=== PATIENT | male | born 1965 | race Caucasian/White ===

== ENCOUNTER 2017-10-20 16:30 | Emergency (ER) | payer BC ==
--- NOTE | 2017-10-20 18:06 | ER Document Report ---
ED Medical Screen (RME) - General Chief Complaint: Pain All Over Stated Complaint: ANXIETY Time Seen by Provider: 10/20/17 17:49 TRAVEL OUTSIDE OF THE [place] IN LAST 30 DAYS: No - HPI Notes: 10/20/17 18:05 Patient apparently drove himself to the hospital there was found floor at the refill complaining of shoulder pain. Patient upon my evaluation triage has rambling speech stating that he is very anxious. Patient cannot concentrate on one area however he states that he is on chronic pain medication methadone used to be on Valium however has been out currently has pain in the rectum denies any nausea vomiting. Patient also with multiple other complaints however when asked the patient to limit his complaint list to one or 2 objects or the most important objects patient has become very belligerent - Related Data Allergies/Adverse Reactions: Penicillins Allergy (Verified 10/20/17 17:50) Past Medical History - Social History Chew tobacco use (# tins/day): No Frequency of alcohol use: None Drug Abuse: Marijuana Renal/ Medical History: Denies: Hx Peritoneal Dialysis Review of Systems - Review of Systems Constitutional: Other - pain Physical Exam - Vital signs Vitals: Temp Pulse Resp BP Pulse Ox 97.9 F 75 22 H 148/85 H 98 10/20/17 16:35 10/20/17 16:35 10/20/17 16:35 10/20/17 16:35 10/20/17 16:35 - Respiratory Respiratory status: No respiratory distress Chest status: Nontender Breath sounds: Normal Chest palpation: Normal - Cardiovascular Rhythm: Regular Heart sounds: Normal auscultation - Extremities General lower extremity: Normal weight bearing Course - Vital Signs Vital signs: Temp Pulse Resp BP Pulse Ox 97.9 F 75 22 H 148/85 H 98 10/20/17 16:35 10/20/17 16:35 10/20/17 16:35 10/20/17 16:35 10/20/17 16:35
--- NOTE | 2017-10-20 19:08 | RADIOLOGY REPORT (SQ) ---
EXAM DESCRIPTION: SHOULDER BILAT 2 OR MORE VIEWS COMPLETED DATE/TIME: 10/20/2017 6:51 pm REASON FOR STUDY: chronic pain right shoulder COMPARISON: None. FINDINGS: Three views right shoulder: Presumed postoperative changes related to the AC joint, which looks minimally irregular. There is scattered regional surgical sutures. No fracture or bone lesio n. Right lung clear as assessed. Three views left shoulder. Superior migration humeral head, worrisome for cuff tear. AC joint intac t. Lungs as assessed are clear. TECHNICAL DOCUMENTATION: JOB ID: [id number] Reading location - IP/workstation name: [email or web address]
[2017-10-20 19:18] LABS: ABSOLUTE EOSINOPHILS # (AUTO) 0.1 10^3/uL (0.0-0.6); ABSOLUTE LYMPHOCYTES (AUTO) 0.9 10^3/uL (0.5-4.7); ABSOLUTE MONOCYTES (AUTO) 0.6 10^3/uL (0.1-1.4); ABSOLUTE NEUT (AUTO) 4.4 10^3/uL (1.7-8.2); BASOPHILS % (AUTO) 0.4 % (0-2); EOSINOPHILS % (AUTO) 1.6 % (0-6); HEMATOCRIT 39.6 % (37.9-51.0); HEMOGLOBIN 13.7 g/dL (13.5-17.0); LYMPHOCYTES % (AUTO) 14.4 % (13-45); MEAN CORPUSCULAR HEMOGLOBIN 33.5 pg (27.0-33.4); MEAN CORPUSCULAR HGB CONC 34.7 g/dL (32.0-36.0); MEAN CORPUSCULAR VOLUME 97 fl (80-97); MONOCYTES % (AUTO) 10.3 % (3-13); PLATELET COUNT 235 10^3/uL (150-450); RED CELL DISTRIBUTION WIDTH 13.2 % (11.5-14.0); SEGMENTED NEUTROPHILS % (AUTO) 73.3 % (42-78); TOTAL CELLS COUNTED % (AUTO) 100 %
[2017-10-20 19:21] LABS: AMORPHOUS SEDIMENT,URINE TRACE /HPF; APPEARANCE,URINE SLIGHTLY-CLOUDY; BILIRUBIN,URINE NEGATIVE (NEGATIVE); COLOR,URINE YELLOW; GLUCOSE, URINE NEGATIVE (NEGATIVE); KETONES,URINE TRACE mg/dL (NEGATIVE); LEUKOCYTE ESTERASE,URINE NEGATIVE (NEGATIVE); NITRITE,URINE NEGATIVE (NEGATIVE); PROTEIN,URINE NEGATIVE (NEGATIVE); URINE SPECIFIC GRAVITY 1.024
[2017-10-20 19:41] LABS: ALANINE AMINOTRANSFERASE 31 U/L (21-72); ALBUMIN 4.5 g/dL (3.5-5.0); ALKALINE PHOSPHATASE 57 U/L (38-126); ANION GAP 15 (5-19); ASPARTATE AMINO TRANSFERASE 27 U/L (17-59); BILIRUBIN,DIRECT 0.4 mg/dL (0.0-0.4); BILIRUBIN,TOTAL 0.5 mg/dL (0.2-1.3); BLOOD UREA NITROGEN 11 mg/dL (7-20); CALCIUM 9.7 mg/dL (8.4-10.2); CARBON DIOXIDE 30 mmol/L (22-30); CHLORIDE 103 mmol/L (98-107); GLUCOSE 119 mg/dL (75-110); POTASSIUM 3.3 mmol/L (3.6-5.0); SODIUM 147.5 mmol/L (137-145); TOTAL PROTEIN 8.1 g/dL (6.3-8.2)
[2017-10-20 19:51] LABS: URINE AMPHETAMINES SCREEN NEGATIVE; URINE BARBITURATES SCREEN NEGATIVE; URINE BENZODIAZEPINES SCREEN UNCONFIRMED POSITIVE; URINE MARIJUANA (THC) SCREEN UNCONFIRMED POSITIVE; URINE PHENCYCLIDINE SCREEN NEGATIVE
[2017-10-20 19:53] LABS: URINE COCAINE SCREEN NEGATIVE; URINE METHADONE SCREEN NEGATIVE
[2017-10-20] MEDS ORDERED: POTASSIUM CHLORIDE 10 MEQ CAPSULE.ER PO ONE (22:20)
--- NOTE | 2017-10-20 22:23 | ER Document Report ---
ED General - General Chief Complaint: Pain All Over Stated Complaint: ANXIETY Time Seen by Provider: 10/20/17 17:49 Notes: Patient is 52-year-old male who presents with saying that his body hurts all over and that he is very anxious. He says he has been out of his Valium now for a few days. He takes it routinely. He also has mentions a history of rectal cancer. He has colostomy. He says he will sometimes see blood coming from his rectum but has not yet followed up with his oncologist or physician regards to this. No fevers. No recent infections. No other complaints at this time. Workup was performed after triage evaluation by the physician triage. TRAVEL OUTSIDE OF THE [place] IN LAST 30 DAYS: No - Related Data Allergies/Adverse Reactions: Penicillins Allergy (Verified 10/20/17 17:50) Past Medical History - Social History Smoking Status: Former Smoker Chew tobacco use (# tins/day): No Frequency of alcohol use: None Drug Abuse: Marijuana Family History: Reviewed & Not Pertinent Patient has suicidal ideation: No Patient has homicidal ideation: No Renal/ Medical History: Denies: Hx Peritoneal Dialysis Review of Systems - Review of Systems Notes: My Normal Review Basic REVIEW OF SYSTEMS: CONSTITUTIONAL : Denies fever, chills, or sweats. Denies recent illness. EENT: Denies eye, ear, throat, or mouth pain or symptoms. Denies nasal or sinus congestion. CARDIOVASCULAR: Denies chest pain. RESPIRATORY: Denies cough, cold, or chest congestion. Denies shortness of breath, difficulty breathing, or wheezing. GASTROINTESTINAL: Denies abdominal pain. Some intermittent rectal bleeding. GENITOURINARY: Denies difficulty urinating, painful urination, burning, frequency, or blood in urine. FEMALE GENITOURINARY: Denies vaginal bleeding, abnormal or irregular periods. LMP: MUSCULOSKELETAL: Fuhs body aches. SKIN: Denies rash or skin lesions. NEUROLOGICAL: Denies altered mental status or loss of consciousness. Denies headache. Denies weakness or paralysis or loss of use of either side. Denies problems with gait or speech. Denies sensory or motor loss. PSYCHIATRIC: anxiety ALL OTHER SYSTEMS REVIEWED AND NEGATIVE. Physical Exam - Vital signs Vitals: Temp Pulse Resp BP Pulse Ox 97.9 F 75 22 H 148/85 H 98 10/20/17 16:35 10/20/17 16:35 10/20/17 16:35 10/20/17 16:35 10/20/17 16:35 - Notes Notes: General Appearance: Well nourished, exam patient is very hyper and anxious. He does not appear to be in significant pain. He is not septic or toxic appearing. Vitals: reviewed, See vital signs table. Head: no swelling or tenderness to the head Eyes: PERRL, EOMI, Conjuctiva clear Mouth: No decreasd moisture Throat: No tonsillar inflammation, No airway obstruction, No lymphadenopathy Neck: Supple, no neck tenderness, No thyromegaly Lungs: No wheezing, No rales, No rhonci, No accessory muscle use, good air exchange bilaterally. Heart: Normal rate, Regular rythm, No murmur, no rub Abdomen: Normal BS, soft, No rigidity, No abdominal tenderness, No guarding, no rebound, no abdominal masses, no organomegaly Exam: No blood on external rectal exam.. No external rectal masses. Extremities: strength 5/5 in all extremities, good pulses in all extremities, no swelling or tenderness in the extremities, no edema. Skin: warm, dry, appropriate color, no rash Neuro: speech clear, oriented x 3, Hyper affect, responds appropriately to questions. Course - Re-evaluation Re-evalutation: 10/21/17 05:23 I suspect most patient's symptoms are related to the fact that is now been several days without his Valium and he typically takes Valium 4 times a day. I have given a dose of Valium and I will write a short prescription for next few days until he can get into see his doctor. I did look him up on the prescription database and his last prescription was September 17 so it does coincide with the fact that he has been out for approximately 2 days. I think this will most likely relieve most patient's symptoms. In regards to his rectal bleeding has had intermittently, I informed him that he needs to follow-up closely with his oncologist for reevaluation. I informed him to return to ER if he has consistent rectal bleeding, any pain in his rectal area, any seizures, he feels like his heart is racing, or she feels unwell. Patient agrees with plan will be discharged home. Dictation of this chart was performed using voice recognition software; therefore, there may be some unintended grammatical errors. - Vital Signs Vital signs: Temp Pulse Resp BP Pulse Ox 97.5 F 72 15 132/54 H 100 10/20/17 22:30 10/20/17 22:30 10/20/17 22:30 10/20/17 22:30 10/20/17 22:30 - Laboratory Result Diagrams: 10/20/17 18:53 10/20/17 18:53 Laboratory results interpreted by me: 10/20/17 10/20/17 10/20/17 18:53 18:53 19:07 RBC 4.10 L MCH 33.5 H Sodium 147.5 H Potassium 3.3 L Glucose 119 H Urine Ketones TRACE H Urine Urobilinogen 4.0 H Discharge - Discharge Clinical Impression: Anxiety, Rectal bleeding, Benzodiazepine dependence Chronic shoulder pain Qualifiers: Laterality: left Qualified Code(s): M25.512 - Pain in left shoulder Condition: Good Disposition: HOME, SELF-CARE Additional Instructions: PLease take the Valium as prescribed and follow up with your doctor for refill of your medications. please follow up with your oncologist (cancer doctor) and inform him/her of your rectal bleeding. Return to the ER if you have worsening bleeding. fevers. or feel unwell. Prescriptions: Diazepam [Valium 5 mg Tablet] 5 mg PO QIDP PRN #15 tablet PRN Reason:
[2017-10-20 23:38] VITALS: BP 132/54
== END 2017-10-20 23:45 | disposition home or self-care (01) ==
LOC: ER 16:30
DX: M25.512 Pain in left shoulder (principal); K62.5 Hemorrhage of anus and rectum; F41.9 Anxiety disorder, unspecified; F19.20 Other psychoactive substance dependence, uncomplicated; Z85.048 Personal history of other malignant neoplasm of rectum, rectosigmoid junction, and anus; Z93.3 Colostomy status; Z87.891 Personal history of nicotine dependence
CPT/HCPCS: 36415; 80053; 80307; 81001; 85025; 99284

== ENCOUNTER 2017-10-27 18:36 | Emergency (ER) | payer BC ==
[2017-10-27 19:19] VITALS: BP 157/83
[2017-10-27] MEDS ORDERED: DICYCLOMINE HCL 10 MG CAPSULE PO ONE (20:22)
[2017-10-27] MEDS ORDERED: ONDANSETRON 4 MG TAB.RAPDIS PO ONE (20:22)
--- NOTE | 2017-10-27 20:25 | ER Document Report ---
ED Medical Screen (RME) - General Chief Complaint: Rectal Bleeding Stated Complaint: POSSIBLE ANXIETY Time Seen by Provider: 10/27/17 20:16 Notes: RAPID MEDICAL EVALUATION DISCLOSURE I have seen this patient as part of a Rapid Medical Evaluation and, if applicable, placed any initially appropriate orders. The patient will be seen and fully evaluated, including a full history and physical exam, by a provider ( in Main ED or Fast Track) when a room becomes available. 52-year-old male PMH rectal cancer with ostomy in place here with complaints of rectal bleeding that has been ongoing "for a really long time". He sometimes has abdominal pain however I am unable to obtain very little history or review of systems from him because he is very fixated on obtaining a prescription for diazepam. I am able to ascertain that he is free of cancer and that he does drink a lot of alcohol. EXAM CTAB RRR No appreciably significant abdominal TTP Ostomy to the left abdomen TRAVEL OUTSIDE OF THE [place] IN LAST 30 DAYS: No - Related Data Allergies/Adverse Reactions: Penicillins Allergy (Verified 10/20/17 17:50) Past Medical History Renal/ Medical History: Denies: Hx Peritoneal Dialysis Physical Exam - Vital signs Vitals: Temp Pulse Resp BP Pulse Ox 98.0 F 98 16 157/83 H 98 10/27/17 19:18 10/27/17 19:18 10/27/17 19:18 10/27/17 19:18 10/27/17 19:18 Course - Vital Signs Vital signs: Temp Pulse Resp BP Pulse Ox 98.0 F 98 16 157/83 H 98 10/27/17 19:18 10/27/17 19:18 10/27/17 19:18 10/27/17 19:18 10/27/17 19:18 Doctor's Discharge - Discharge Instructions: Anxiety ([facility])
[2017-10-27 21:39] LABS: ABSOLUTE EOSINOPHILS # (AUTO) 0.1 10^3/uL (0.0-0.6); ABSOLUTE MONOCYTES (AUTO) 0.7 10^3/uL (0.1-1.4); ABSOLUTE NEUT (AUTO) 4.5 10^3/uL (1.7-8.2); BASOPHILS % (AUTO) 0.7 % (0-2); HEMATOCRIT 42.3 % (37.9-51.0); HEMOGLOBIN 14.4 g/dL (13.5-17.0); LYMPHOCYTES % (AUTO) 15.6 % (13-45); MEAN CORPUSCULAR HEMOGLOBIN 33.7 pg (27.0-33.4); MEAN CORPUSCULAR VOLUME 99 fl (80-97); MONOCYTES % (AUTO) 10.5 % (3-13); PLATELET COUNT 256 10^3/uL (150-450); RED BLOOD COUNT 4.27 10^6/uL (4.35-5.55); RED CELL DISTRIBUTION WIDTH 13.5 % (11.5-14.0); SEGMENTED NEUTROPHILS % (AUTO) 72.2 % (42-78); TOTAL CELLS COUNTED % (AUTO) 100 %; WHITE BLOOD COUNT 6.3 10^3/uL (4.0-10.5)
[2017-10-27 21:45] LABS: INTERNATIONAL RATION (INR) 0.93
[2017-10-27 21:56] LABS: ALANINE AMINOTRANSFERASE 28 U/L (21-72); ALBUMIN 4.8 g/dL (3.5-5.0); ALKALINE PHOSPHATASE 56 U/L (38-126); ANION GAP 14 (5-19); ASPARTATE AMINO TRANSFERASE 25 U/L (17-59); BILIRUBIN,DIRECT 0.3 mg/dL (0.0-0.4); BILIRUBIN,TOTAL 0.6 mg/dL (0.2-1.3); BLOOD UREA NITROGEN 12 mg/dL (7-20); CALCIUM 9.7 mg/dL (8.4-10.2); CARBON DIOXIDE 26 mmol/L (22-30); CHLORIDE 106 mmol/L (98-107); GLUCOSE 91 mg/dL (75-110); LIPASE 92.1 U/L (23-300); POTASSIUM 4.1 mmol/L (3.6-5.0); SODIUM 145.6 mmol/L (137-145); TOTAL PROTEIN 8.1 g/dL (6.3-8.2)
[2017-10-27] MEDS ORDERED: KETOROLAC TROMETHAMINE 60 MG/2 ML SDV IM ONE (23:27)
[2017-10-27] MEDS ORDERED: DIAZEPAM 5 MG TABLET PO ONE (23:51)
--- NOTE | 2017-10-27 23:52 | ER Document Report ---
ED General - General Chief Complaint: Rectal Bleeding Stated Complaint: POSSIBLE ANXIETY Time Seen by Provider: 10/27/17 20:16 Notes: Patient is a 52 year old male that comes to the ED for chief complaint of anxiety, insomnia, and being out of his valium. He states he was seen here a few days ago, was prescribed valium, had an appointment with his provider for his regular scripts today, but he states after showing up for the appointment they could not work him in to be seen. He denies vomiting, chills, or any obvious withdrawal symptoms. Denies history of withdrawals, but he just ran out and he has been on this daily for 4 years. States he was started on this during treatments for colon cancer. He has a colostomy bag. He states that intermittently for months he has had some rectal bleeding and he wants to be checked out for this as well. He denies any abdominal pain, fever, dizziness, or heavy bleeding from the rectum. TRAVEL OUTSIDE OF THE [place] IN LAST 30 DAYS: No - Related Data Allergies/Adverse Reactions: Penicillins Allergy (Verified 10/27/17 20:31) Past Medical History - Social History Smoking Status: Former Smoker Family History: Reviewed & Not Pertinent Patient has suicidal ideation: No Patient has homicidal ideation: No Renal/ Medical History: Denies: Hx Peritoneal Dialysis Review of Systems - Review of Systems Constitutional: See HPI EENT: No symptoms reported Cardiovascular: No symptoms reported Respiratory: No symptoms reported Gastrointestinal: See HPI Genitourinary: No symptoms reported Male Genitourinary: No symptoms reported Musculoskeletal: No symptoms reported Skin: No symptoms reported Hematologic/Lymphatic: No symptoms reported Neurological/Psychological: See HPI Physical Exam - Vital signs Vitals: Temp Pulse Resp BP Pulse Ox 98.0 F 98 16 157/83 H 98 10/27/17 19:18 10/27/17 19:18 10/27/17 19:18 10/27/17 19:18 10/27/17 19:18 - Notes Notes: GENERAL: Alert, anxious, restless. No acute distress. HEAD: Normocephalic, atraumatic. EYES: Pupils equal, round, and reactive to light. Extraocular movements intact. ENT: Oral mucosa moist, tongue midline. [Nares patent, no nasal septal hematoma , TM's intact.] NECK: Full range of motion. Supple. Trachea midline. LUNGS: Clear to auscultation bilaterally, no wheezes, rales, or rhonchi. No respiratory distress. HEART: Regular rate and rhythm. No murmur ABDOMEN: Soft, non-tender. Non-distended. Colostomy bag present, no abnormal findings with the back or in the bag. RECTAL: No concerning findings, no abscess, no mass, no bleeding noted currently , no obvious hemorrhoid, unremarkable exam. EXTREMITIES: Moves all 4 extremities spontaneously. No edema, normal radial and dorsalis pedis pulses bilaterally. No cyanosis. BACK: no cervical, thoracic, lumbar midline tenderness. No saddle anesthesia, normal distal neurovascular exam. NEUROLOGICAL: Alert and oriented x3. Normal speech. [cranial nerves II through XII grossly intact]. PSYCH: Restless and anxious, apologizes frequently SKIN: Warm, dry, normal turgor. No rashes or lesions noted. Course - Re-evaluation Re-evalutation: CBC, chemistry, coagulation studies unremarkable. Vital signs unremarkable. No current bleeding on my rectal examination. Abdomen is soft and benign. Patient is anxious, jittery, nervous, denies SI or HI. He was given Valium here and afterwards he did calm down significantly. Patient does have good explanation for his situation, because he does have benzodiazepine dependence, follow-up, I did provide him with additional Valium for him to take, I told him to spread this out, I told him that we would not be able to continue to refill his prescription and that he must have this continued by his primary care provider. Patient states understanding, gratefulness, states that he will follow-up with his primary to get this filled in the future and he understands that he will not be given additional prescriptions for this ongoing problem in the emergency setting. - Vital Signs Vital signs: Temp Pulse Resp BP Pulse Ox 98.0 F 98 16 157/83 H 98 10/27/17 19:18 10/27/17 19:18 10/27/17 19:18 10/27/17 19:18 10/27/17 19:18 - Laboratory Result Diagrams: 10/27/17 21:30 10/27/17 21:30 Laboratory results interpreted by me: 10/27/17 10/27/17 21:30 21:30 RBC 4.27 L MCV 99 H MCH 33.7 H Sodium 145.6 H Discharge - Discharge Clinical Impression: Anxiety, Benzodiazepine dependence Disposition: HOME, SELF-CARE Instructions: Anxiety ([facility]) Additional Instructions: You have been provided with a prescription to take, take this carefully and spread out, please follow-up very closely with your provider, you have been prescribed this to avoid withdrawals however you cannot be given additional prescriptions for controlled substance from the emergency department for chronic condition, you must follow-up with your primary care provider. Please follow-up with gastroenterology as well for ongoing issues of intermittent blood in stool, your blood counts today did not show any concerning abnormalities, your examination does not show any concerning abnormalities at this time. Return if you worsen including fever, abdominal pain, passing out, heavy bleeding, or something is not right. Prescriptions: Diazepam [Valium 5 mg Tablet] 5 mg PO BID PRN #12 tablet PRN Reason:
[2017-10-27] MEDS ORDERED: DIAZEPAM 5 MG TABLET ONE (23:54)
[2017-10-28] MEDS ORDERED: DIAZEPAM 5 MG TABLET PO ONE (00:41)
== END 2017-10-28 00:45 | disposition home or self-care (01) ==
LOC: ER 18:36
DX: F41.9 Anxiety disorder, unspecified (principal); T42.4X6A Underdosing of benzodiazepines, initial encounter; Z91.128 Patient's intentional underdosing of medication regimen for other reason; Z91.14 Patient's other noncompliance with medication regimen; F13.20 Sedative, hypnotic or anxiolytic dependence, uncomplicated; G47.00 Insomnia, unspecified; K62.5 Hemorrhage of anus and rectum; Z85.038 Personal history of other malignant neoplasm of large intestine; Z88.0 Allergy status to penicillin; Z87.891 Personal history of nicotine dependence; Z93.3 Colostomy status
CPT/HCPCS: 99283; 96372; 36415; 83690; 85025; 85610; 85730; 80053; J3490; J1885; S0119

== ENCOUNTER 2018-01-18 09:06 | Emergency (ER) | payer BC ==
[2018-01-18] MEDS ORDERED: NORMAL SALINE 1000 ML 1,000 ML IV ONE (09:33)
[2018-01-18] MEDS ORDERED: ONDANSETRON HCL INJ/PF 4 MG/2 ML SDV IV ONE (09:34)
[2018-01-18] MEDS ORDERED: MORPHINE SULFATE 10 MG/ML INJ IV ONE (09:35)
--- NOTE | 2018-01-18 09:37 | ER Document Report ---
ED Medical Screen (RME) - General Chief Complaint: Abdominal Pain Stated Complaint: ABDOMINAL PAIN Time Seen by Provider: 01/18/18 09:33 Notes: Patient is a 52-year-old male with history of colon cancer status post resection and colostomy that presents to the emergency department for chief complaint of abdominal pain related to his ostomy. He also complains of rectal bleeding. ROS: Other than noted above, the 12 point review of systems was reviewed with the patient and were negative, all pertinent findings are included in the HPI. PHYSICAL EXAMINATION: Vital signs reviewed. GENERAL: Well-appearing, well-nourished and in no acute distress. HEAD: Atraumatic, normocephalic. EYES: Pupils equal round extraocular movements intact, conjunctiva are normal. ENT: Nares patent NECK: Normal range of motion CV: Heart regular rate and rhythm LUNGS: No respiratory distress Musculoskeletal: Normal range of motion Abdomen: Mild abdominal tenderness to palpation, ostomy appears healthy, in the left lower quadrant, there is green liquid in the ostomy that patient reports is a deodorant for the ostomy. NEUROLOGICAL: Normal speech PSYCH: Normal mood, normal affect. MDM: Patient seen and examined for rapid initial assessment. Vital signs reviewed. A comprehensive ED assessment and evaluation of the patient, analysis of test results and completion of the medical decision making process will be conducted by additional ED providers. *Note is created using voice recognition software and may contain spelling, syntax or grammatical errors. TRAVEL OUTSIDE OF THE [place] IN LAST 30 DAYS: No - Related Data Allergies/Adverse Reactions: Penicillins Allergy (Verified 01/18/18 09:10) Past Medical History Renal/ Medical History: Denies: Hx Peritoneal Dialysis Physical Exam - Vital signs Vitals: Temp Pulse Resp BP Pulse Ox 97.3 F 83 14 105/87 H 98 01/18/18 09:19 01/18/18 09:19 01/18/18 09:19 01/18/18 09:19 01/18/18 09:19 Course - Vital Signs Vital signs: Temp Pulse Resp BP Pulse Ox 97.3 F 83 14 105/87 H 98 01/18/18 09:19 01/18/18 09:19 01/18/18 09:19 01/18/18 09:19 01/18/18 09:19
--- NOTE | 2018-01-18 10:33 | ER Document Report ---
ED General - General Chief Complaint: Abdominal Pain Stated Complaint: ABDOMINAL PAIN Time Seen by Provider: 01/18/18 09:33 TRAVEL OUTSIDE OF THE [place] IN LAST 30 DAYS: No - HPI Notes: Patient is a 52-year-old male with a history of colono-anal cancer status post multiple GI surgeries with subsequent ostomy bag who presents to the ED complaining of generalized abdominal pain and possible bright red blood discharge from his anus. Patient states that the blood has been intermittent over the last several months. Patient states that he will have occasional abdominal pain, but this has been pretty constant over the last week. His pain does not radiate. Patient states that he is eating and drinking without any difficulty. He is urinating normally. Patient has not noticed any black stool. No other recent illness. Denies any smoking, alcohol, drug abuse. Patient states that he has not been seen by his oncologist who is in [place] since 2017. His family doctors also in [place]. Patient states that he is going to look for another provider in this area due to the commute. Denies any headache, fever, URI, sore throat, chest pain, palpitations, syncope, cough, shortness of breath, wheeze, dyspnea, nausea/vomiting/diarrhea, urinary retention, dysuria, hematuria, back pain, loss of control of bowel or bladder, numbness/tingling, saddle anesthesia, muscle paralysis/weakness, or rash. - Related Data Allergies/Adverse Reactions: Penicillins Allergy (Verified 01/18/18 09:10) Past Medical History - Social History Smoking Status: Former Smoker Chew tobacco use (# tins/day): No Frequency of alcohol use: None Drug Abuse: None Family History: Reviewed & Not Pertinent Patient has suicidal ideation: No Patient has homicidal ideation: No Renal/ Medical History: Denies: Hx Peritoneal Dialysis Musculoskeletal Medical History: Reports Hx Arthritis Psychiatric Medical History: Reports: Hx Depression - anxiety Past Surgical History: Reports: Hx Bowel Surgery - ostomy placement Review of Systems - Review of Systems -: Yes All other systems reviewed and negative Physical Exam - Vital signs Vitals: Temp Pulse Resp BP Pulse Ox 97.3 F 83 14 105/87 H 98 01/18/18 09:19 01/18/18 09:19 01/18/18 09:19 01/18/18 09:19 01/18/18 09:19 - Notes Notes: PHYSICAL EXAMINATION: GENERAL: Well-appearing, well-nourished and in no acute distress. HEAD: Atraumatic, normocephalic. EYES: Pupils equal round and reactive to light, extraocular movements intact, sclera anicteric, conjunctiva are normal. ENT: Nares patent and without discharge. oropharynx clear without exudates. No tonsilar hypertrophy or erythema. Moist mucous membranes. NECK: Normal range of motion, supple without lymphadenopathy LUNGS: Breath sounds clear to auscultation bilaterally and equal. No wheezes rales or rhonchi. HEART: Regular rate and rhythm without murmurs, rubs, gallops. ABDOMEN: Soft, nondistended abdomen. No guarding, no rebound. No masses appreciated. Normal bowel sounds present. No CVA tenderness bilaterally. + generalized tenderness. Ostomy in place and does not appear to have surrounding infection/cellulitis. Rectal: No discharge noted. + discomfort with palp, but no obvious melena or hematochezia noted. Musculoskeletal: FROM to passive/active. Strength 5+/5. Extremities: No cyanosis, clubbing, or edema b/l. Peripheral pulses 2+. Capillary refill less than 3 seconds. NEUROLOGICAL: Normal speech, normal gait. PSYCH: Normal mood, normal affect. SKIN: Warm, Dry, normal turgor, no rashes or lesions noted. Course - Re-evaluation Re-evalutation: 01/18/18 14:[address] Kat who is in agreement with dispo/plan: Patient is an afebrile, well-hydrated, 52-year-old male who presents to the ED for generalized abdominal pain, unspecified. Vitals are acceptable without significant tachycardia, tachypnea, or hypoxia. PE is otherwise unremarkable. CBC, CMP, lipase, lactic acid, urinalysis were unremarkable for any acute pathology. CT scan of the abdomen and pelvis with IV and oral contrast was obtained and was grossly unremarkable at this time aside from postsurgical changes. Rectal exam did not yield any bright red blood or melena. Patient is nontoxic-appearing and is able to tolerate p.o. No further labs or imaging warranted at this time. Low suspicion/risk for acute appendicitis, bowel obstruction, acute cholecystitis, perforated diverticulitis, incarcerated hernia , pancreatitis, perforated ulcer, peritonitis, sepsis, testicular torsion, or other systemic emergent condition at this time. Patient is aware that his condition can change from initial presentation and he needs to monitor symptoms closely and seek medical attention if any acute changes. I did stress the importance of getting patient follow-up with oncology/urology for further evaluation and management. Patient may need an outpatient colonoscopy performed. Rx for oxycodone. Conservative measures otherwise for symptoms. Recheck with PCM/oncology in 3-5 days. Consider consult with a financial professional. Return to the ED with any worsening/concerning symptoms otherwise as reviewed in discharge. Patient is in agreement. - Vital Signs Vital signs: Temp Pulse Resp BP Pulse Ox 97.3 F 83 16 128/84 H 100 01/18/18 09:19 01/18/18 09:19 01/18/18 12:01 01/18/18 12:01 01/18/18 12:01 - Laboratory Result Diagrams: 01/18/18 10:30 01/18/18 10:30 Laboratory results interpreted by me: 01/18/18 01/18/18 10:30 10:30 RBC 4.20 L MCH 34.0 H ALT 12 L Total Protein 8.3 H Discharge - Discharge Clinical Impression: Abdominal pain Qualifiers: Abdominal location: generalized Qualified Code(s): R10.84 - Generalized abdominal pain Condition: Stable Disposition: HOME, SELF-CARE Instructions: Abdominal Pain ([facility]) Additional Instructions: As reviewed, you may need an outpatient colonoscopy performed. It is very important that you have follow-up with either family provider and/or an oncologist for further evaluation and management. Maintain adequate fluid and food intake healthy diet Monitor for any worsening symptoms Make sure you are staying hydrated enough to urinate and have normal BM's Recheck with your PCM/oncology in 3-5 days Consider consult with Gastroenterology for ongoing/worsening symptoms Return to the ED with any worsening symptoms and/or development of fever, headache, chest pain, palpitations, syncope, shortness of breath, trouble breathing, abdominal pain, n/v/d, worsening blood in stool/urine, weakness, or other worsening symptoms that are concerning to you. Prescriptions: Oxycodone HCl/Acetaminophen [Percocet 5-325 mg Tablet] 1 tab PO BID #10 tab Forms: Elevated Blood Pressure, Return to Work Referrals: COURTNEY VENCES MD [ACTIVE STAFF] - Follow up as needed HILARIO MOREIRA MD [ACTIVE STAFF] - Follow up in 3-5 days
[2018-01-18 10:52] LABS: ABSOLUTE EOSINOPHILS # (AUTO) 0.1 10^3/uL (0.0-0.6); ABSOLUTE LYMPHOCYTES (AUTO) 0.7 10^3/uL (0.5-4.7); ABSOLUTE MONOCYTES (AUTO) 0.5 10^3/uL (0.1-1.4); ABSOLUTE NEUT (AUTO) 3.8 10^3/uL (1.7-8.2); BASOPHILS % (AUTO) 0.6 % (0-2); EOSINOPHILS % (AUTO) 1.1 % (0-6); HEMOGLOBIN 14.3 g/dL (13.5-17.0); LYMPHOCYTES % (AUTO) 13.1 % (13-45); MEAN CORPUSCULAR HGB CONC 35.8 g/dL (32.0-36.0); MEAN CORPUSCULAR VOLUME 95 fl (80-97); MONOCYTES % (AUTO) 9.4 % (3-13); PLATELET COUNT 202 10^3/uL (150-450); RED CELL DISTRIBUTION WIDTH 12.6 % (11.5-14.0); SEGMENTED NEUTROPHILS % (AUTO) 75.8 % (42-78); TOTAL CELLS COUNTED % (AUTO) 100 %; WHITE BLOOD COUNT 5.1 10^3/uL (4.0-10.5)
[2018-01-18 11:11] LABS: ALANINE AMINOTRANSFERASE 12 U/L (21-72); ALBUMIN 4.7 g/dL (3.5-5.0); ALKALINE PHOSPHATASE 71 U/L (38-126); ANION GAP 13 (5-19); ASPARTATE AMINO TRANSFERASE 23 U/L (17-59); BILIRUBIN,DIRECT 0.2 mg/dL (0.0-0.4); BILIRUBIN,TOTAL 0.4 mg/dL (0.2-1.3); BLOOD UREA NITROGEN 10 mg/dL (7-20); CALCIUM 9.6 mg/dL (8.4-10.2); CARBON DIOXIDE 26 mmol/L (22-30); CHLORIDE 105 mmol/L (98-107); GLUCOSE 108 mg/dL (75-110); LIPASE 63.4 U/L (23-300); POTASSIUM 3.8 mmol/L (3.6-5.0); SODIUM 143.6 mmol/L (137-145); TOTAL PROTEIN 8.3 g/dL (6.3-8.2)
[2018-01-18 12:15] VITALS: BP 128/84
[2018-01-18 12:34] LABS: APPEARANCE,URINE CLEAR; BILIRUBIN,URINE NEGATIVE (NEGATIVE); COLOR,URINE STRAW; GLUCOSE, URINE NEGATIVE (NEGATIVE); KETONES,URINE NEGATIVE (NEGATIVE); LEUKOCYTE ESTERASE,URINE NEGATIVE (NEGATIVE); NITRITE,URINE NEGATIVE (NEGATIVE); PROTEIN,URINE NEGATIVE (NEGATIVE); URINE SPECIFIC GRAVITY 1.002; UROBILINOGEN,URINE NEGATIVE mg/dL (<2.0)
--- NOTE | 2018-01-18 13:16 | RADIOLOGY REPORT (SQ) ---
EXAM DESCRIPTION: CT ABD/PELVIS WITH IV ORAL COMPLETED DATE/TIME: 01/18/2018 12:49 pm REASON FOR STUDY: abdominal pain, rectal bleeding s/p colostomy COMPARISON: None. TECHNIQUE: CT scan of the abdomen and pelvis performed using helical scanning technique with dynamic intravenous contrast injection and oral contrast. Images reviewed with lung, soft tissue, and bone w indows. Reconstructed coronal and sagittal MPR images reviewed. Delayed images for evaluation of the urinary system also acquired. All images stored on PACS. All CT scanners at this facility use dose modulation, iterative reconstruction, and/or weight based d osing when appropriate to reduce radiation dose to as low as reasonably achievable (ALARA). [facility]: Dose Right [facility]: CareDose [facility]: Dose Right [facility]: Teradose 4D [facility]: web care [employer] CONTRAST TYPE AND DOSE: contrast/concentration: Isovue 350.00 mg/ml; Total Contrast Delivered: 91.0 ml; Total Saline Delivered: 70.0 ml RENAL FUNCTION: Creatinine 0.68 RADIATION DOSE: CT Rad equipment meets quality standard of care and radiation dose reduction techniq ues were employed. CTDIvol: 5.7 - 6.6 mGy. DLP: 681 mGy-cm.. LIMITATIONS: None. FINDINGS: LOWER CHEST: No significant findings. No nodules or infiltrates. LIVER: Normal size. No masses. No dilated ducts. SPLEEN: Normal size. No focal lesions. PANCREAS: No masses. No significant calcifications. No adjacent inflammation or peripancreatic fluid collections. Pancreatic duct not dilated. GALLBLADDER: No identified stones by CT criteria. No inflammatory changes to suggest cholecystitis. ADRENAL GLANDS: No significant masses or asymmetry. RIGHT KIDNEY AND URETER: No solid masses. No significant calcifications. No hydronephrosis or hyd roureter. LEFT KIDNEY AND URETER: No solid masses. No significant calcifications. No hydronephrosis or hydr oureter. AORTA AND VESSELS: No aneurysm. No dissection. Renal arteries, SMA, celiac without stenosis. RETROPERITONEUM: No retroperitoneal adenopathy, hemorrhage or masses. BOWEL AND PERITONEAL CAVITY: Postsurgical changes are identified involving the sigmoid colon with a c olostomy being identified in the left lower quadrant. There is some thickening of the rome of the c olon just proximal to the colostomy which may be postsurgical in nature or could be related to edemat ous or inflammatory changes. No free fluid or peritoneal masses. APPENDIX: Not identified PELVIS: There is soft tissue fullness in the posterior pelvis with some loss of the normal fat and so ft tissue planes which presumably is postsurgical in nature. There are associated surgical clips. A small fluid collection is identified within the presumed postsurgical changes which also is presumab ly postsurgical in nature. There is a small associated gas collection which may also be related to p ostsurgical changes although the possibility of an infectious process cannot be excluded. Normal blad [place]. ABDOMINAL WALL: No masses. No hernias. BONES: No significant or acute findings. OTHER: No other significant finding. IMPRESSION: Postsurgical changes in the pelvis and a colostomy being identified in the left lower qu adrant as noted above. There is some thickening of the rome of the colon just proximal to the colos juany which may be postsurgical in nature or could be related to edematous or inflammatory changes. P ostsurgical changes in the pelvis as noted above with a small associated fluid collection presumably postsurgical in nature and a small associated gas collection which may also be related to postsurgica l changes although the possibility of an infectious process cannot be excluded. Clinical correlation is recommended. Other findings as noted above TECHNICAL DOCUMENTATION: JOB ID: [id number] Quality ID # [id number]: Final reports with documentation of one or more dose reduction techniques (e.g., Au tomated exposure control, adjustment of the mA and/or kV according to patient size, use of iterative reconstruction technique) 2010 [employer]- All Rights Reserved Reading location - IP/workstation name: [email or web address]
== END 2018-01-18 15:27 | disposition home or self-care (01) ==
LOC: ER 09:06
DX: R10.84 Generalized abdominal pain (principal); Z85.038 Personal history of other malignant neoplasm of large intestine; Z87.891 Personal history of nicotine dependence
CPT/HCPCS: 99284; 96361; 96374; 96375; 36415; 83605; 83690; 85025; 80053; 81001; 74177; J2270; J2405; J7030

== ENCOUNTER 2018-02-03 18:22 | Emergency (ER) | payer BC ==
[2018-02-03 18:43] VITALS: BP 113/62
[2018-02-03] MEDS ORDERED: OXYCODONE-ACETAMINOPHEN 5-325 MG TABLET PO ONE (19:05)
--- NOTE | 2018-02-03 19:14 | ER Document Report ---
ED GI/ - General Chief Complaint: Abdominal Pain >50 Stated Complaint: ABDOMINAL PAIN Time Seen by Provider: 02/03/18 18:56 Mode of Arrival: Ambulatory Information source: Patient Notes: Chief complaint: abdominal pain: History of complain:( obtained from----patient) 52 years old male with a history of colon cancer, chronic pain syndrome, was taking oxycodone, presents today saying that mid abdominal pain that he had for a long time is persistent and unbearable. Requesting pain medication. He was given pain clinic referral in the past but he has not followed up according to him. No fever chills or other constitutional symptoms. No acute symptoms. Long-standing gradual Onset: Long-standing Duration: Gradual Severity: Questionable minute mild to moderate Quality: Sharp Context: Unknown Exacerbating factor and relieving factors: Unknown REVIEW OF SYSTEMS: CONSTITUTIONAL : Denies fever, chills, or sweats. Denies recent illness. EENT: Denies eye, ear, throat, or mouth pain or symptoms. Denies nasal or sinus congestion or discharge. Denies throat, tongue, or mouth swelling or difficulty swallowing. CARDIOVASCULAR: Denies chest pain. Denies palpitations or racing or irregular heart beat. Denies ankle edema. RESPIRATORY: Denies cough, cold, or chest congestion. Denies shortness of breath, difficulty breathing, or wheezing. GASTROINTESTINAL: Denies distention. Denies nausea, vomiting, or diarrhea. Denies blood in vomitus, stools, or per rectum. Denies black, tarry stools. Denies constipation. GENITOURINARY: Denies difficulty urinating, painful urination, burning, frequency, blood in urine, or discharge. FEMALE GENITOURINARY: Denies vaginal bleeding, heavy or abnormal periods, irregular periods. Denies vaginal discharge or odor. MUSCULOSKELETAL: Denies back or neck pain or stiffness. Denies joint pain or swelling. SKIN: Denies rash, lesions or sores. HEMATOLOGIC : Denies easy bruising or bleeding. LYMPHATIC: Denies swollen, enlarged glands. NEUROLOGICAL: Denies confusion or altered mental status. Denies passing out or loss of consciousness. Denies dizziness or lightheadedness. Denies headache. Denies weakness or paralysis or loss of use of either side. Denies problems with gait or speech. Denies sensory loss, numbness, or tingling. Denies seizures. PSYCHIATRIC: Denies anxiety or stress. Denies depression, suicidal ideation, or homicidal ideation. ALL OTHER SYSTEMS REVIEWED AND NEGATIVE. PHYSICAL EXAMINATION: GENERAL: Well-appearing, well-nourished and in no acute distress. HEAD: Atraumatic, normocephalic. EYES: Pupils equal round and reactive to light, extraocular movements intact, conjunctiva are normal. ENT: Nares patent, oropharynx clear without exudates. Moist mucous membranes. NECK: Normal range of motion, supple without lymphadenopathy LUNGS: Breath sounds clear to auscultation bilaterally and equal. No wheezes rales or rhonchi. HEART: Regular rate and rhythm without murmurs ABDOMEN: Soft, , nondistended abdomen. No guarding, no rebound. No masses appreciated. Colostomy bag Female : deferred Musculoskeletal: Normal range of motion, no pitting or edema. No cyanosis. NEUROLOGICAL: Cranial nerves grossly intact. Normal speech, normal gait. Normal sensory, motor exams PSYCH: Normal mood, normal affect. SKIN: Warm, Dry, normal turgor, no rashes or lesions noted. Dictation was performed using [employer] voice recognition software TRAVEL OUTSIDE OF THE [place] IN LAST 30 DAYS: No - HPI Notes: 02/03/18 19:12 Dictated - Related Data Allergies/Adverse Reactions: Penicillins Allergy (Verified 02/03/18 18:23) Past Medical History - Social History Smoking Status: Current Every Day Smoker Frequency of alcohol use: None Drug Abuse: None Lives with: Family Family History: Reviewed & Not Pertinent Patient has suicidal ideation: No Patient has homicidal ideation: No Renal/ Medical History: Denies: Hx Peritoneal Dialysis Musculoskeletal Medical History: Reports Hx Arthritis Psychiatric Medical History: Reports: Hx Depression - anxiety Past Surgical History: Reports: Hx Bowel Surgery - ostomy placement Review of Systems - Review of Systems Notes: Dictated Physical Exam - Vital signs Vitals: Pulse Resp BP Pulse Ox 63 20 113/62 100 02/03/18 18:39 02/03/18 18:39 02/03/18 18:39 02/03/18 18:39 - Notes Notes: Dictated Course - Re-evaluation Re-evalutation: 02/03/18 19:13 He was given Percocet - Vital Signs Vital signs: Temp Pulse Resp BP Pulse Ox 63 20 113/62 100 02/03/18 18:39 02/03/18 18:39 02/03/18 18:39 02/03/18 18:39 Discharge - Discharge Clinical Impression: Chronic pain syndrome Condition: Fair Disposition: HOME, SELF-CARE Prescriptions: Oxycodone HCl/Acetaminophen [Percocet 5-325 mg Tablet] 1 - 2 tab PO Q6 #15 tablet
== END 2018-02-03 19:30 | disposition home or self-care (01) ==
LOC: ER 18:22
DX: G89.4 Chronic pain syndrome (principal); R10.9 Unspecified abdominal pain; Z85.038 Personal history of other malignant neoplasm of large intestine; F17.200 Nicotine dependence, unspecified, uncomplicated; Z93.3 Colostomy status; Z88.0 Allergy status to penicillin
CPT/HCPCS: 99283

== ENCOUNTER 2018-11-17 11:36 | Emergency (ER) | payer BC, MEDICAID ==
--- NOTE | 2018-11-17 12:52 | ER Document Report ---
ED Medical Screen (RME) - General Chief Complaint: Leg Pain Stated Complaint: LEG PAIN Time Seen by Provider: 11/17/18 12:51 TRAVEL OUTSIDE OF THE [place] IN LAST 30 DAYS: No - HPI Notes: 11/17/18 13:02 53-year-old male to the emergency department with complaints of right-sided body pain that began 1 week ago and is gotten worse. States that it stops starts on the top of his foot and comes all the way up into his hip along the side of his body and into his arm and shoulder. He states that he has pain every time he moves he feels like the limbs are asleep. He denies any injuries. He denies any bladder or bowel incontinence, saddle paresthesia, fevers, chills. He does not use IV drugs. I performed a medical screening exam on patient and placed initial orders to evaluate patient. Will have patient further managed and evaluated by main side provider. - Related Data Allergies/Adverse Reactions: Penicillins Allergy (Verified 11/17/18 11:41) Past Medical History Renal/ Medical History: Denies: Hx Peritoneal Dialysis Musculoskeltal Medical History: Reports Hx Arthritis Psychiatric Medical History: Reports: Hx Depression - anxiety Past Surgical History: Reports: Hx Bowel Surgery - ostomy placement Physical Exam - Vital signs Vitals: Temp Pulse Resp BP Pulse Ox 97.5 F 81 18 137/85 H 97 11/17/18 11:50 11/17/18 11:50 11/17/18 11:50 11/17/18 11:50 11/17/18 11:50 Course - Vital Signs Vital signs: Temp Pulse Resp BP Pulse Ox 97.5 F 81 18 137/85 H 97 11/17/18 11:50 11/17/18 11:50 11/17/18 11:50 11/17/18 11:50 11/17/18 11:50
--- NOTE | 2018-11-17 13:41 | RADIOLOGY REPORT (SQ) ---
EXAM DESCRIPTION: FOOT RIGHT COMPLETE COMPLETED DATE/TIME: 11/17/2018 1:29 pm REASON FOR STUDY: right foot pain, tingling COMPARISON: None. NUMBER OF VIEWS: Three views. TECHNIQUE: AP, lateral and oblique radiographic images acquired of the right foot. LIMITATIONS: None. FINDINGS: MINERALIZATION: Normal. BONES: No acute fracture or dislocation. No worrisome bone lesions. JOINTS: No effusions. SOFT TISSUES: No soft tissue swelling. No foreign body. OTHER: No other significant finding. IMPRESSION: NEGATIVE STUDY OF THE RIGHT FOOT. NO RADIOGRAPHIC EVIDENCE OF ACUTE INJURY. TECHNICAL DOCUMENTATION: JOB ID: [id number] [employer]- All Rights Reserved Reading location - IP/workstation name: [email or web address]
--- NOTE | 2018-11-17 13:42 | RADIOLOGY REPORT (SQ) ---
EXAM DESCRIPTION: HAND RIGHT 3 VIEWS COMPLETED DATE/TIME: 11/17/2018 1:29 pm REASON FOR STUDY: right hand pain, swelling COMPARISON: None. EXAM PARAMETERS: NUMBER OF VIEWS: Three views. TECHNIQUE: AP, lateral and oblique radiographic images acquired of the right hand. LIMITATIONS: None. FINDINGS: MINERALIZATION: Normal. BONES: No acute fracture or dislocation. No worrisome bone lesions. JOINTS: No effusions. SOFT TISSUES: No soft tissue swelling. No foreign body. OTHER: No other significant finding. IMPRESSION: NEGATIVE STUDY OF THE RIGHT HAND. NO RADIOGRAPHIC EVIDENCE OF ACUTE INJURY. TECHNICAL DOCUMENTATION: JOB ID: [id number] [employer]- All Rights Reserved Reading location - IP/workstation name: [email or web address]
[2018-11-17 14:06] LABS: ABSOLUTE BASOPHILS # (AUTO) 0.1 10^3/uL (0.0-0.2); ABSOLUTE EOSINOPHILS # (AUTO) 0.1 10^3/uL (0.0-0.6); ABSOLUTE MONOCYTES (AUTO) 0.5 10^3/uL (0.1-1.4); ABSOLUTE NEUT (AUTO) 4.9 10^3/uL (1.7-8.2); BASOPHILS % (AUTO) 0.8 % (0-2); EOSINOPHILS % (AUTO) 1.4 % (0-6); HEMATOCRIT 37.8 % (37.9-51.0); HEMOGLOBIN 13.3 g/dL (13.5-17.0); MEAN CORPUSCULAR HEMOGLOBIN 32.7 pg (27.0-33.4); MEAN CORPUSCULAR HGB CONC 35.3 g/dL (32.0-36.0); MEAN CORPUSCULAR VOLUME 93 fl (80-97); MONOCYTES % (AUTO) 7.6 % (3-13); PLATELET COUNT 311 10^3/uL (150-450); RED BLOOD COUNT 4.08 10^6/uL (4.35-5.55); RED CELL DISTRIBUTION WIDTH 13.2 % (11.5-14.0); SEGMENTED NEUTROPHILS % (AUTO) 75.2 % (42-78); TOTAL CELLS COUNTED % (AUTO) 100 %; WHITE BLOOD COUNT 6.5 10^3/uL (4.0-10.5)
[2018-11-17 14:20] LABS: ALBUMIN 4.3 g/dL (3.5-5.0); ALKALINE PHOSPHATASE 67 U/L (38-126); ANION GAP 10 (5-19); ASPARTATE AMINO TRANSFERASE 29 U/L (17-59); BILIRUBIN,DIRECT 0.2 mg/dL (0.0-0.4); BILIRUBIN,TOTAL 0.3 mg/dL (0.2-1.3); BLOOD UREA NITROGEN 11 mg/dL (7-20); CALCIUM 9.7 mg/dL (8.4-10.2); CARBON DIOXIDE 24 mmol/L (22-30); CHLORIDE 106 mmol/L (98-107); CREATINE KINASE 53 U/L (55-170); GLUCOSE 101 mg/dL (75-110); TOTAL PROTEIN 7.4 g/dL (6.3-8.2)
[2018-11-17] MEDS ORDERED: HYDROMORPHONE HCL INJ/PF 2 MG/ML AMPULE IM ONE (14:56)
--- NOTE | 2018-11-17 15:02 | ER Document Report ---
ED General - General Chief Complaint: Leg Pain Stated Complaint: LEG PAIN Time Seen by Provider: 11/17/18 12:51 TRAVEL OUTSIDE OF THE [place] IN LAST 30 DAYS: No - HPI Patient complains to provider of: Hand and right lower extremity pain Notes: 53-year-old man suffering from chronic pain. Has increasing pain in his right hand and right lower extremity. Pain is 8/10 throbbing in nature without radiation nothing makes it better or worse. Patient denies any trauma. Patient is scheduled to see his PCP in 1 week. States he will need pain medicine to get through that appointment. Denies fever chills cough or other symptoms. - Related Data Allergies/Adverse Reactions: Penicillins Allergy (Verified 11/17/18 11:41) Past Medical History - Social History Smoking Status: Current Every Day Smoker Chew tobacco use (# tins/day): No Frequency of alcohol use: None Drug Abuse: None Family History: Reviewed & Not Pertinent Patient has suicidal ideation: No Patient has homicidal ideation: No Renal/ Medical History: Denies: Hx Peritoneal Dialysis Musculoskeletal Medical History: Reports Hx Arthritis Psychiatric Medical History: Reports: Hx Depression - anxiety Past Surgical History: Reports: Hx Bowel Surgery - ostomy placement Review of Systems - Review of Systems Notes: REVIEW OF SYSTEMS: CONSTITUTIONAL: -fevers, -chills EENT: -eye pain, -difficulty swallowing, -nasal congestion CARDIOVASCULAR: -chest pain, -syncope. RESPIRATORY: -cough, -SOB GASTROINTESTINAL: -abdominal pain, -nausea, -vomiting, -diarrhea GENITOURINARY: -dysuria, -hematuria MUSCULOSKELETAL: -back pain, -neck pain SKIN: -rash or skin lesions. HEMATOLOGIC: -easy bruising or bleeding. LYMPHATIC: -swollen, enlarged glands. NEUROLOGICAL: -altered mental status or loss of consciousness, -headache, - neurologic symptoms PSYCHIATRIC: -anxiety, -depression. ALL OTHER SYSTEMS REVIEWED AND NEGATIVE. Physical Exam - Vital signs Vitals: Temp Pulse Resp BP Pulse Ox 97.5 F 81 18 137/85 H 97 11/17/18 11:50 11/17/18 11:50 11/17/18 11:50 11/17/18 11:50 11/17/18 11:50 - Notes Notes: PHYSICAL EXAMINATION: GENERAL: Well-appearing, well-nourished and in no acute distress. HEAD: Atraumatic, normocephalic. EYES: Pupils equal round and reactive to light, extraocular movements intact, sclera anicteric, conjunctiva are normal. ENT: nares patent, oropharynx clear without exudates. Moist mucous membranes. NECK: Normal range of motion, supple without lymphadenopathy LUNGS: Breath sounds clear to auscultation bilaterally and equal. No wheezes rales or rhonchi. HEART: Regular rate and rhythm without murmurs ABDOMEN: Soft, nontender, normoactive bowel sounds. No guarding, no rebound. No masses appreciated. EXTREMITIES: Normal range of motion, no pitting or edema. No cyanosis. NEUROLOGICAL: Cranial nerves grossly intact. Normal speech, normal gait. Normal sensory and motor exams. PSYCH: Normal mood, normal affect. SKIN: Warm, Dry, normal turgor, no rashes or lesions noted. Course - Re-evaluation Re-evalutation: 11/17/18 15:01 53-year-old man suffers from chronic pain resents with exacerbation of his chronic condition. Patient having intense right hand pain and right lower extremity pain. Patient given intramuscular analgesia feeling markedly improved. Patient's extensive lab work-up shows no leukocytosis or other gross abnormality. Patient's imaging study also unremarkable at this time. Patient be discharged home improved follow-up PCP given strict return precautions if anything should change or worsen please return. Patient is asking for Dilaudid by name and in a shot not oral medication. - Vital Signs Vital signs: Temp Pulse Resp BP Pulse Ox 97.5 F 81 18 137/85 H 97 11/17/18 11:50 11/17/18 11:50 11/17/18 11:50 11/17/18 11:50 11/17/18 11:50 - Laboratory Result Diagrams: 11/17/18 13:44 11/17/18 13:44 Laboratory results interpreted by me: 11/17/18 11/17/18 13:44 13:44 RBC 4.08 L Hgb 13.3 L Hct 37.8 L Creatine Kinase 53 L Discharge - Discharge Clinical Impression: Pain Condition: Stable Disposition: HOME, SELF-CARE Additional Instructions: Your PCP Prescriptions: Oxycodone HCl [Oxycontin Ir 5 Mg Tablet] 1 - 2 mg PO Q4H PRN #15 tablet PRN Reason: For Pain
[2018-11-17 15:51] VITALS: BP 131/83
[2018-11-17] MEDS ORDERED: HYDROMORPHONE HCL INJ/PF 2 MG/ML AMPULE ONE (16:11)
== END 2018-11-17 15:51 | disposition home or self-care (01) ==
LOC: ER 11:36
DX: M79.604 Pain in right leg (principal); M79.641 Pain in right hand; F17.200 Nicotine dependence, unspecified, uncomplicated
CPT/HCPCS: 36415; 82550; 83735; 85025; 80053; 73630; 73130; J1170

== ENCOUNTER → 2018-11-30 | Outpatient (CLI) | payer BC, MEDICAID ==
--- NOTE | 2018-12-01 08:04 | XCELERA REPORT ---
[address] [address] Lower Extremity Arterial Evaluation Name: BRITTANYNONA LEONILA Amado Age: 53 yrs Gender: Male : 1965 Patient Status: Outpatient Patient Location: Study Date: 11/30/2018 09:19 AM Procedure: A color flow and duplex scan of the lower extremity arteries was performed on the right with velocity and waveform anaylsis. Reason For Study: RLE PAIN Ordering Physician: TYRELL BUSTILLOS Performed By: Eulalio Lau Measurements and Calculations Right Left SOLAR ENERGY SPECIALIST PSV 202.0 cm/sec Prox PFA PSV -127.1 cm/sec Prox SFA PSV 93.0 cm/sec Mid SFA PSV -91.1 cm/sec Dist SFA PSV -66.2 cm/sec Prox Pop A PSV 55.0 cm/sec Dist DARYL PSV 56.2 cm/sec Dist HEADWAITRESS PSV -79.0 cm/sec Agus Pedis PSV -14.7 72.7 cm/sec Right Side Arterial Evaluation Normal velocity and triphasic waveforms noted from the Common Femoral artery to the infrageniculate vessels . Biphasic, retrograde with low velocity in the Dorsalis Pedis artery. Ankle Brachial index not ordered. Left Side Arterial Evaluation Very limited study on the left, normal velocity, triphasic waveform in the Dorsalis Pedis. Interpretation Summary Mild hemodynamically significant lesions in the right lower extremity only, on duplex imaging, at rest. Retrograde, flow in the Dorsalis Pedis, suggests limited distal disease. Limited study on the left is normal. : TYRELL BUSTILLOS > Riki Pillai
== END ==
LOC: SP 08:49
PROVIDERS: ATTEND Family Medicine
DX: M79.661 Pain in right lower leg (principal)
CPT/HCPCS: 93926

== ENCOUNTER 2018-12-13 14:26 | Emergency (ER) | payer BC, MEDICAID ==
[2018-12-13] MEDS ORDERED: KETOROLAC TROMETHAMINE INJ/PF 30 MG/1 ML SDV IM ONE (15:36)
[2018-12-13] MEDS ORDERED: DEXAMETHASONE SOD PHOS INJ 10 MG/1 ML VIAL IM ONE (15:37)
--- NOTE | 2018-12-13 15:42 | ER Document Report ---
HPI - HPI Patient complains to provider of: pain Time Seen by Provider: 12/13/18 15:29 Pain Level: 5 Context: 53-year-old male presents to the emergency department with chief complaint of chronic pain and his left foot being "on ice". Patient states that he called Dr. Bustillos's office and spoke with the nurse who recommended that he come to the emergency department to seek treatment. Patient states that he "just needs a bridge" because they made a scheduling error and he is being seen there on Thursday. Patient states that he was told to come here to get a "double shot of Toradol and a double shot of steroids" and to get "2 mg of hydromorphone". I performed a [employer] aware search on the patient and it shows that he was prescribed a 30-day supply of oxymorphone on November 25, 2018 along with diazepam and zolpidem. - REPRODUCTIVE Reproductive: DENIES: : Past Medical History - Social History Smoking Status: Current Some Day Smoker Chew tobacco use (# tins/day): No Frequency of alcohol use: None Drug Abuse: None Family History: Reviewed & Not Pertinent Patient has suicidal ideation: No Patient has homicidal ideation: No Renal/ Medical History: Denies: Hx Peritoneal Dialysis Musculoskeletal Medical History: Reports Hx Arthritis Psychiatric Medical History: Reports: Hx Depression - anxiety Past Surgical History: Reports: Hx Bowel Surgery - ostomy placement Vertical Provider Document - CONSTITUTIONAL Notes: PHYSICAL EXAMINATION: Reviewed vital signs and charting by RN GENERAL: Alert, interacts well. No acute distress. HEAD: Normocephalic, atraumatic. EYES: Pupils equal and round. Extraocular movements intact. ENT: Oral mucosa moist, tongue midline. NECK: Full range of motion. Trachea midline. EXTREMITIES: Moves all 4 extremities spontaneously. No edema, No cyanosis. PSYCH: Normal affect, normal mood. SKIN: Warm, dry, normal turgor. No rashes or lesions noted. - INFECTION CONTROL TRAVEL OUTSIDE OF THE [place] IN LAST 30 DAYS: No Course - Re-evaluation Re-evalutation: 12/13/18 15:40 Unfortunately, patient is exhibiting signs of seeking behavior. I tried to explain to the patient he was given a 30-day supply of narcotics 2 weeks ago and that it could be dangerous for him and it is concerning for his health. I also told him that we could give him a shot of dexamethasone and a shot of Toradol to which she agreed to. I expressed concern that he may be misusing narcotics. Patient understood but said that the pain was just too much and he had to take more. I told him that we would not be able to give him any narcotics any understood and agreed with plan. He is stable for discharge. - Vital Signs Vital signs: Temp Pulse Resp BP Pulse Ox 97.6 F 80 20 120/87 H 98 12/13/18 14:32 12/13/18 14:32 12/13/18 14:32 12/13/18 14:32 12/13/18 14:32 Discharge - Discharge Clinical Impression: Chronic pain Qualifiers: Chronic pain type: other chronic pain Qualified Code(s): G89.29 - Other chronic pain Condition: Good Disposition: HOME, SELF-CARE Additional Instructions: Please follow-up with Dr. Bustillos on Thursday. You should only take your prescribed narcotics as indicated because you are given a 30-day supply that should have lasted another 2 weeks. This is considered misuse and could affect the ability for prescribers to give you more in the future. Please return to the emergency department if you have paralysis, severe, acute weakness, acute shortness of breath or chest pain, you pass out, or you have any other concerning symptoms Referrals: TYRELL BUSTILLOS MD [Primary Care Provider] - Follow up as needed
[2018-12-13 15:58] VITALS: BP 122/87
== END 2018-12-13 16:16 | disposition home or self-care (01) ==
LOC: ER 14:26
DX: G89.29 Other chronic pain (principal); F17.200 Nicotine dependence, unspecified, uncomplicated
CPT/HCPCS: J1885; J1100; 96372; 99283

== ENCOUNTER → 2019-01-03 | Outpatient (CLI) | payer BC, MEDICAID ==
--- NOTE | 2019-01-03 16:49 | XCELERA REPORT ---
[address] [place] [facility] [address] Lower Extremity Venous Evaluation Procedure: Color flow and duplex imaging of the veins of the right lower extremity as well as the left Common Femoral vein. Right Sided Venous Evaluation Normal vessel filling wall to wall, compression and augmentation as well as Colour flow down to the infrageniculate veins. Left Sided Venous Evaluation The left common femoral vein is fully compressible. Spontaneous and phasic flow is present in the left common femoral vein. Interpretation Summary No duplex evidence of DVT or obstruction in the right lower extremity nor in the left Common Femoral vein. Name: LEONILA LOWE Age: 53 yrs Gender: Male : 1965 Patient Status: Outpatient Patient Location: Study Date: 01/03/2019 03:18 PM Reason For Study: RLE PAIN Ordering Physician: TYRELL BUSTILLOS Performed By: Eulalio Lau : TYRELL BUSTILLOS > Riki Pillai
== END ==
LOC: SP 15:01
PROVIDERS: ATTEND Family Medicine
DX: I82.401 Acute embolism and thrombosis of unspecified deep veins of right lower extremity (principal); M79.661 Pain in right lower leg
CPT/HCPCS: 93971

== ENCOUNTER → 2019-01-12 | Outpatient (CLI) | payer BC, MEDICAID ==
--- NOTE | 2019-01-12 17:44 | RADIOLOGY REPORT (SQ) ---
EXAM DESCRIPTION: MRI LUMBAR SPINE WITHOUT COMPLETED DATE/TIME: 01/12/2019 5:07 pm REASON FOR STUDY: M54.16 RADICULOPATHY, LUMBAR REGION M54.16 RADICULOPATHY, LUMBAR REGION COMPARISON: None. TECHNIQUE: Sagittal and Axial imaging includes T1, T2, STIR and gradient echo sequences. Coronal T2/ HASTE imaging. LIMITATIONS: None. FINDINGS: VISUALIZED UPPER ABDOMEN: Limited evaluation. No acute or suspicious findings suggested. SEGMENTATION: No transitional anatomy. The lowest well-developed disc space is labeled L5-S1. ALIGNMENT: Anatomic. VERTEBRAE: Intact. BONE MARROW: Normal. No marrow replacement or reactive changes. DISC SIGNAL: There is mild disc narrowing from L3-S1. Slightly decreased T2 signal intensity. POSTERIOR ELEMENTS: Generally intact. No pars defect evident. HARDWARE: None in the spine. CORD AND CONUS: Normal in size and signal intensity. Conus at the L1 level. SOFT TISSUES: No aortic aneurysm seen. No bulky retroperitoneal adenopathy or mass. No paraspinal mas s or fluid. L1-L2: No significant spinal stenosis or exit foraminal stenosis. L2-L3: No significant spinal stenosis or exit foraminal stenosis. L3-L4: Facet and ligament hypertrophy. Mild central canal stenosis. No significant foraminal stenos is. L4-L5: Mild concentric disc bulging. Mild facet and ligament hypertrophy. Mild central canal stenos is. No foraminal stenosis. L5-S1: Shallow disc/ osteophyte complex to the left of the midline. This appears to displace the tra versing nerve root dorsally by small amount. LOWER THORACIC: Incompletely imaged. No stenosis seen. SACRUM: Tarlov cyst. OTHER: No other significant findings. IMPRESSION: 1. Mild central canal stenosis at L3-4 secondary to facet arthropathy. 2. Mild concentric disc bulging, mild facet and ligament hypertrophy at L4-5 results in mild central canal stenosis. 3. Disc/osteophyte complex to the left of the midline at L5-S1 displaces the traversing nerve root d orsally. 4. Tarlov cyst in the sacrum. TECHNICAL DOCUMENTATION: JOB ID: [id number] lettrs- All Rights Reserved Reading location - IP/workstation name: [email or web address]
== END ==
LOC: RAD 15:59
PROVIDERS: ATTEND Physician Assistant
DX: M51.16 Intervertebral disc disorders with radiculopathy, lumbar region (principal)
CPT/HCPCS: 72148

== ENCOUNTER 2019-02-24 21:36 | Emergency (ER) | payer MEDICAID ==
--- NOTE | 2019-02-24 22:06 | ER Document Report ---
ED General - General Stated Complaint: POSSIBLE SEIZURE,ALTERED MENTAL STATUS Time Seen by Provider: 02/24/19 22:01 Primary Care Provider: JOVITA KEEN PA [Primary Care Provider] - Follow up as needed Mode of Arrival: Medic Information source: Patient Cannot obtain history due to: Altered mental status TRAVEL OUTSIDE OF THE [place] IN LAST 30 DAYS: No - Related Data Allergies/Adverse Reactions: Penicillins Allergy (Verified 11/17/18 11:41) Past Medical History - General Information source: Patient Cannot obtain history due to: Altered mental status - Social History Smoking Status: Current Every Day Smoker Lives with: Friend Family History: Reviewed & Not Pertinent Patient has suicidal ideation: No Patient has homicidal ideation: No - Medical History Medical History: Other - Chronic pain, colon cancer with colostomy. And chronic neuropathy pain. Renal/ Medical History: Denies: Hx Peritoneal Dialysis Malignancy Medical History: Reports Hx Colorectal Cancer Musculoskeletal Medical History: Reports Hx Arthritis Psychiatric Medical History: Reports: Hx Depression - anxiety Past Surgical History: Reports: Hx Bowel Surgery - ostomy placement - Immunizations Immunizations up to date: Yes Review of Systems - Review of Systems Constitutional: See HPI Respiratory: No symptoms reported Musculoskeletal: See HPI Neurological/Psychological: Other - Peripheral neuropathy Physical Exam - Vital signs Vitals: Resp BP Pulse Ox 13 93/78 L 96 02/24/19 21:56 02/24/19 21:56 02/24/19 21:56 Interpretation: Normal - Notes Notes: Cooperative. Inconsistent with motor motor and sensory. Patient complains of exquisite supersensitive pain in all extremities particularly lower extremities. States he is unable to lift his legs off the gurney at this time. Patient reports that he has had multiple falls but no head injury. - General General appearance: Appears well, Alert In distress: Moderate - HEENT Head: Normocephalic, Atraumatic Eyes: Normal Pupils: PERRL Neck: Normal - Respiratory Respiratory status: No respiratory distress Chest status: Nontender Breath sounds: Normal Chest palpation: Normal - Cardiovascular Rhythm: Regular Heart sounds: Normal auscultation Murmur: No - Abdominal Inspection: Normal Distension: No distension Bowel sounds: Normal Tenderness: Nontender Organomegaly: No organomegaly, Other - Colostomy bag in the left lower quadrant skin around the area is clean and dry. Abdomen is soft nontender - Back Back: Normal, Nontender - Extremities General upper extremity: Normal inspection, Nontender, Normal color, Normal ROM, Normal temperature General lower extremity: Normal inspection, Nontender, Normal color, Normal ROM, Normal temperature, Normal weight bearing. No: Ana Lilia's sign - Neurological Neuro grossly intact: Yes Cognition: Normal Orientation: AAOx4 [place] Coma Scale Eye Opening: Spontaneous [place] Coma Scale Verbal: Oriented [place] Coma Scale Motor: Obeys Commands Cyndy Coma Scale Total: 15 Speech: Normal, Dysarthria Cerebellar coordination: Other - Unable to do rapid alternating movements. [id number] coordination intact. Will do [id number]. Hip strength appear equal. Motor strength normal: LUE - Upper extremity strength 4+ out of 5 with slight weakness in left upper extremity. Patient unable to lift either lower extremity off the gurney., RUE, LLE, RLE Additional motor exam normals: Pronator drift - Pronator drift noted slightly on the left upper extremity. Sensory: Normal - Psychological Associated symptoms: Normal affect, Normal mood - Skin Skin Temperature: Warm Skin Moisture: Dry Skin Color: Normal Course - Vital Signs Vital signs: Temp Pulse Resp BP Pulse Ox 98.4 F 92 14 116/81 98 02/24/19 22:35 02/24/19 22:20 02/25/19 01:00 02/25/19 01:00 02/25/19 01:00 - Laboratory Result Diagrams: 02/24/19 22:05 02/24/19 23:22 Laboratory results interpreted by me: 02/24/19 02/24/19 22:05 23:22 WBC 10.7 H RDW 14.2 H Lymph % (Auto) 9.4 L Absolute Neuts (auto) 8.9 H Seg Neutrophils % 83.6 H Potassium 3.1 L Chloride 113 H Carbon Dioxide 21 L Creatinine 0.51 L Calcium 7.5 L AST 15 L Total Protein 6.0 L Albumin 2.9 L - Diagnostic Test Radiology reviewed: Image reviewed, Reports reviewed - EKG Interpretation by Me Additional EKG results interpreted by me: 02/24/19 22:09 12-lead EKG done at 2144 shows normal sinus rhythm rate of 91 and right ventricular hypertrophy otherwise no acute change. Discharge - Discharge Clinical Impression: Hypocalcemia, Hypokalemia, Dehydration, Chronic pain syndrome Condition: Fair Disposition: HOME, SELF-CARE Additional Instructions: Chronic Pain Control Stress, inactivity, and depression make pain more severe regardless of the cause of the pain. Stress and poor physical condition can cause pain such as headaches and backache. Relaxation: Rest in a quiet place with your eyes closed for 20 minutes twice daily. Concentrate on a pleasant image, or simply "feel" your breathing. Clear your mind. Stress management: Deal with your "stressors." Either take action, or eliminate the stressor from your life. Don't let things hang over you. Accept those things you can't change. Nutrition: Eat small, balanced meals -- don't skip, don't overeat. Meals should be high-carbohydrate, low-sugar, low-fat. Exercise: Exercise helps painful conditions and eases stress. Get 30 minutes of moderate exercise, five days a week. Do an activity that does not flare your pain. Precautions: Pain which continues to disrupt daily activities, or which changes in nature, requires a medical evaluation. Pain Clinic referral is available. We do not manage chronic pain in the Emergency Department. We will try to appropriately help you through an acute flare of your chronic painful condition, but for on-going chronic pain that does not improve, you will need to see your private doctor or electrostatic paint operator. We do not provide repeated medication management of chronic painful conditions. If you wish, we can provid e the name of local pain management physicians. You also have dehydration and low potassium and low calcium levels today. Prescriptions have been written to you to supplement your meals with calcium and potassium tablets for the next 4 days. Prescriptions: Calcium Carbonate 500 mg PO BID #20 tablet Potassium Chloride 20 meq PO BID #8 [id number] Referrals: JOVITA KEEN PA [Primary Care Provider] - Follow up as needed
[2019-02-24 22:22] LABS: INTERNATIONAL RATION (INR) 1.01; PROTHROMBIN TIME 13.3 SEC (11.4-15.4)
[2019-02-24 22:23] LABS: PARTIAL THROMBOPLASTIN TIME 25.4 SEC (23.5-35.8)
[2019-02-24 22:29] LABS: ABSOLUTE MONOCYTES (AUTO) 0.7 10^3/uL (0.1-1.4); ABSOLUTE NEUT (AUTO) 8.9 10^3/uL (1.7-8.2); BASOPHILS % (AUTO) 0.4 % (0-2); EOSINOPHILS % (AUTO) 0.3 % (0-6); HEMATOCRIT 45.4 % (37.9-51.0); HEMOGLOBIN 15.8 g/dL (13.5-17.0); LYMPHOCYTES % (AUTO) 9.4 % (13-45); MEAN CORPUSCULAR HEMOGLOBIN 32.9 pg (27.0-33.4); MEAN CORPUSCULAR HGB CONC 34.9 g/dL (32.0-36.0); MEAN CORPUSCULAR VOLUME 94 fl (80-97); MONOCYTES % (AUTO) 6.3 % (3-13); PLATELET COUNT 310 10^3/uL (150-450); RED BLOOD COUNT 4.82 10^6/uL (4.35-5.55); RED CELL DISTRIBUTION WIDTH 14.2 % (11.5-14.0); SEGMENTED NEUTROPHILS % (AUTO) 83.6 % (42-78); TOTAL CELLS COUNTED % (AUTO) 100 %; WHITE BLOOD COUNT 10.7 10^3/uL (4.0-10.5)
--- NOTE | 2019-02-24 22:33 | RADIOLOGY REPORT (SQ) ---
EXAM DESCRIPTION: XR CHEST 1 VIEW COMPLETED DATE/TME: 02/24/2019 21:41 CLINICAL HISTORY: 54 years Male stroke symptoms COMPARISON: None. FINDINGS: The cardiomediastinal silhouette appears unremarkable. No consolidating infiltrates or pleural effusions. No pneumothorax. Pulmonary hyperinflation consistent with COPD IMPRESSION: Pulmonary hyperinflation suggesting COPD without evidence of acute process
--- NOTE | 2019-02-24 22:41 | RADIOLOGY REPORT (SQ) ---
EXAM DESCRIPTION: CT HEAD WITHOUT IV CONTRAST COMPLETED DATE/TME: 02/24/2019 21:41 CLINICAL HISTORY: 54 years Male stroke symptoms COMPARISON: None. TECHNIQUE: Contiguous axial CT images obtained through the brain without IV contrast. This exam was performed according to our department optimization program which includes automated exposure control, adjustment of the mA and/or kv according to patient size and/or use of iterative reconstruction technique. FINDINGS: The ventricles and sulci are within normal limits for the patient's age. No midline shift or mass effect. No masses identified. No acute intracranial hemorrhage. No fluid or significant mucosal thickening in the visualized paranasal sinuses. No depressed calvarial fractures. IMPRESSION: No acute intracranial abnormality is identified. Dr. Flowers was called and notified of the findings at 9:40 PM central time.
[2019-02-24] MEDS ORDERED: NORMAL SALINE 250 ML IV ONE (23:02)
[2019-02-24] MEDS ORDERED: NORMAL SALINE 1000 ML 1,000 ML IV ONE (23:02)
[2019-02-24] MEDS ORDERED: DIAZEPAM INJ 10 MG/2 ML DISP.SYRIN IV ONE (23:42)
[2019-02-24 23:53] LABS: ALBUMIN 2.9 g/dL (3.5-5.0); ALKALINE PHOSPHATASE 56 U/L (38-126); ANION GAP 7 (5-19); ASPARTATE AMINO TRANSFERASE 15 U/L (17-59); BILIRUBIN,DIRECT 0.3 mg/dL (0.0-0.4); BILIRUBIN,TOTAL 0.5 mg/dL (0.2-1.3); BLOOD UREA NITROGEN 14 mg/dL (7-20); CALCIUM 7.5 mg/dL (8.4-10.2); CARBON DIOXIDE 21 mmol/L (22-30); CHLORIDE 113 mmol/L (98-107); CREATINE KINASE 68 U/L (55-170); GLUCOSE 93 mg/dL (75-110); POTASSIUM 3.1 mmol/L (3.6-5.0)
[2019-02-24] MEDS ORDERED: NICOTINE 21 MG/24 HR PATCH.TD24 TD ONE (23:57)
[2019-02-25 00:04] LABS: CREATINE KINASE MB 2.78 ng/mL (<4.55)
[2019-02-25 00:18] LABS: TROPONIN I < 0.012 ng/mL
--- NOTE | 2019-02-25 00:38 | RADIOLOGY REPORT (SQ) ---
EXAM DESCRIPTION: XR HIP 2 OR MORE VIEWS COMPLETED DATE/TME: 02/24/2019 23:48 CLINICAL HISTORY: 54 years, Male, fall/pain in left hip COMPARISON: None. NUMBER OF VIEWS: 3 TECHNIQUE: AP pelvis and 2 views of the left hip LIMITATIONS: None. FINDINGS: Negative for fracture or dislocation. Soft tissues are unremarkable IMPRESSION: Negative exam copyright 2010 [facility] [employer]- All Rights Reserved
[2019-02-25] MEDS ORDERED: POTASSI CL 20 MEQ/50 ML RIDER 20 MEQ/50 ML RTUPB IV ONE (00:42)
[2019-02-25] MEDS ORDERED: POTASSIUM CHLORIDE 10 MEQ TABLET.ER PO ONE (00:42)
[2019-02-25] MEDS ORDERED: CALCIUM CARBONATE 500 MG TAB.CHEW PO ONE (00:43)
[2019-02-25] MEDS ORDERED: KETOROLAC TROMETHAMINE INJ/PF 30 MG/1 ML SDV IV ONE (01:04)
[2019-02-25] MEDS ORDERED: NORMAL SALINE 1000 ML 1,000 ML IV ONE (01:05)
[2019-02-25 02:33] VITALS: BP 118/74
--- NOTE | 2019-02-25 19:27 | EKG REPORT ---
SEVERITY:- BORDERLINE ECG - SINUS RHYTHM CONSIDER RIGHT VENTRICULAR HYPERTROPHY : Confirmed by: Margot Wells MD 25-Feb-2019 19:26:08
== END 2019-02-25 02:33 | disposition home or self-care (01) ==
LOC: ER 21:36
DX: E87.6 Hypokalemia (principal); E83.51 Hypocalcemia; G89.4 Chronic pain syndrome; E86.0 Dehydration; R41.82 Altered mental status, unspecified; F17.200 Nicotine dependence, unspecified, uncomplicated; Z91.81 History of falling
CPT/HCPCS: 93005; 99284; 96361; 96374; 36415; 82553; 82962; 82550; 85025; 85610; 85730; 80053; 84484; 71045; 73502; 70450; 93010; J3360; J7030; J7050; J3490 ×2

== ENCOUNTER 2019-03-04 18:38 | Emergency (ER) | payer MEDICAID | END 2019-03-04 19:17 | disposition left against medical advice (07) | LOC: ER 18:38 | DX: Z53.21 Procedure and treatment not carried out due to patient leaving prior to being seen by health care provider (principal); R19.5 Other fecal abnormalities ==

== ENCOUNTER 2019-03-04 19:03 | Emergency (ER) | payer MEDICAID ==
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
[2019-03-05 00:22] LABS: BLOOD UREA NITROGEN 11 mg/dL (7-20); CARBON DIOXIDE 22 mmol/L (22-30); CHLORIDE 102 mmol/L (98-107); GLUCOSE 142 mg/dL (75-110); POTASSIUM 3.1 mmol/L (3.6-5.0)
[2019-03-05 00:23] LABS: ALBUMIN 4.4 g/dL (3.5-5.0); ALKALINE PHOSPHATASE 72 U/L (38-126); ANION GAP 18 (5-19); ASPARTATE AMINO TRANSFERASE 25 U/L (17-59); BILIRUBIN,DIRECT 0.4 mg/dL (0.0-0.4); BILIRUBIN,TOTAL 0.6 mg/dL (0.2-1.3); TOTAL PROTEIN 8.3 g/dL (6.3-8.2)
[2019-03-05] MEDS ORDERED: POTASSIUM CHLORIDE 20 MEQ PACKET PO ONE (01:41)
[2019-03-05] MEDS ORDERED: NORMAL SALINE 1000 ML 1,000 ML IV ONE (01:42)
[2019-03-05] MEDS ORDERED: POTASSI CL 20 MEQ/50 ML RIDER 20 MEQ/50 ML RTUPB IV ONE (01:43)
[2019-03-05 01:48] LABS: ABSOLUTE EOSINOPHILS # (AUTO) 0.1 10^3/uL (0.0-0.6); ABSOLUTE LYMPHOCYTES (AUTO) 1.2 10^3/uL (0.5-4.7); ABSOLUTE MONOCYTES (AUTO) 0.8 10^3/uL (0.1-1.4); ABSOLUTE NEUT (AUTO) 6.7 10^3/uL (1.7-8.2); BASOPHILS % (AUTO) 0.4 % (0-2); EOSINOPHILS % (AUTO) 0.8 % (0-6); HEMOGLOBIN 13.6 g/dL (13.5-17.0); LYMPHOCYTES % (AUTO) 13.5 % (13-45); MEAN CORPUSCULAR HEMOGLOBIN 32.8 pg (27.0-33.4); MEAN CORPUSCULAR HGB CONC 35.8 g/dL (32.0-36.0); MEAN CORPUSCULAR VOLUME 92 fl (80-97); MONOCYTES % (AUTO) 9.1 % (3-13); PLATELET COUNT 274 10^3/uL (150-450); RED BLOOD COUNT 4.14 10^6/uL (4.35-5.55); RED CELL DISTRIBUTION WIDTH 13.9 % (11.5-14.0); SEGMENTED NEUTROPHILS % (AUTO) 76.2 % (42-78); TOTAL CELLS COUNTED % (AUTO) 100 %; WHITE BLOOD COUNT 8.8 10^3/uL (4.0-10.5)
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
[2019-03-05 02:00] LABS: ALCOHOL < 10 mg/dL (NONE DETECTED)
[2019-03-05] MEDS ORDERED: MAGNESIUM SULFATE PF/INJ 40 MEQ/10 ML SDV IV ONE (04:30)
[2019-03-05] MEDS ORDERED: KETOROLAC TROMETHAMINE INJ/PF 30 MG/1 ML SDV IV ONE (04:30)
[2019-03-05] MEDS ORDERED: MAGNESIUM SULFATE/D5W 1 GM/100 ML RTUPB IV SCH (04:45)
[2019-03-05] MEDS ORDERED: OXYCODONE-ACETAMINOPHEN 5-325 MG TABLET PO ONE (05:49)
[2019-03-05 06:05] VITALS: BP 97/63
--- NOTE | 2019-03-05 08:20 | EKG REPORT ---
SEVERITY:- ABNORMAL ECG - ACCELERATED JUNCTIONAL RHYTHM CONSIDER RIGHT VENTRICULAR HYPERTROPHY : Confirmed by: Darrell Hoffmann MD 05-Mar-2019 08:19:55
== END 2019-03-05 07:22 | disposition home or self-care (01) ==
LOC: ER 19:03
DX: Z76.5 Malingerer [conscious simulation] (principal); G89.4 Chronic pain syndrome; Z85.038 Personal history of other malignant neoplasm of large intestine; E87.6 Hypokalemia; R19.5 Other fecal abnormalities; R41.82 Altered mental status, unspecified; Z93.3 Colostomy status; R47.81 Slurred speech; R53.1 Weakness; M54.5 Low back pain
CPT/HCPCS: 93005; 99283; 96365; 96366; 36415; 82962; 80307; 83735; 85025; 80053; 93010; J3480; J7030; J3490

== ENCOUNTER 2019-03-05 18:59 | Emergency (ER) | payer MEDICAID ==
[2019-03-05 19:50] VITALS: BP 123/79
--- NOTE | 2019-03-05 20:36 | ER Document Report ---
ED Medical Screen (RME) - General Chief Complaint: Rectal Bleeding Stated Complaint: RECTAL BLEEDING Time Seen by Provider: 03/05/19 20:29 Primary Care Provider: JOVITA KEEN PA [Primary Care Provider] - Follow up as needed Notes: Patient is a 54-year-old male who presents to the emergency department with a chief complaint of rectal bleeding. He states that there is blood when he wipes. He has had this problem for the past few days. He was seen here in the emergency department last night. He states that he has a history of colorectal cancer. He was also apparently here on the 25 of February and was given oxycodone and diazepam. Exam: Soft, nontender abdomen. I have greeted and performed a rapid initial assessment of this patient. A comprehensive ED assessment and evaluation of the patient, analysis of test results and completion of medical decision making process will be conducted by an additional ED providers. TRAVEL OUTSIDE OF THE [place] IN LAST 30 DAYS: No - Related Data Allergies/Adverse Reactions: Penicillins Allergy (Verified 03/05/19 05:28) Home Medications: Levothyroxine. Diazepam. Gabapentin. oxymorphone ER. Oxycodone Past Medical History - Social History Chew tobacco use (# tins/day): No Frequency of alcohol use: None Drug Abuse: None Renal/ Medical History: Denies: Hx Peritoneal Dialysis Malignancy Medical History: Reports Hx Colorectal Cancer Musculoskeltal Medical History: Reports Hx Arthritis Psychiatric Medical History: Reports: Hx Depression - anxiety Past Surgical History: Reports: Hx Bowel Surgery - ostomy placement - Immunizations Immunizations up to date: Yes Physical Exam - Vital signs Vitals: Temp Pulse Resp BP Pulse Ox 98.1 F 90 20 123/79 99 03/05/19 19:38 03/05/19 19:38 03/05/19 19:38 03/05/19 19:38 03/05/19 19:38 Course - Vital Signs Vital signs: Temp Pulse Resp BP Pulse Ox 98.1 F 90 20 123/79 99 03/05/19 19:38 03/05/19 19:38 03/05/19 19:38 03/05/19 19:38 03/05/19 19:38 Doctor's Discharge - Discharge Referrals: JOVITA KEEN PA [Primary Care Provider] - Follow up as needed
[2019-03-05 21:56] LABS: ABSOLUTE EOSINOPHILS # (AUTO) 0.1 10^3/uL (0.0-0.6); ABSOLUTE LYMPHOCYTES (AUTO) 1.3 10^3/uL (0.5-4.7); ABSOLUTE MONOCYTES (AUTO) 0.6 10^3/uL (0.1-1.4); ABSOLUTE NEUT (AUTO) 4.9 10^3/uL (1.7-8.2); BASOPHILS % (AUTO) 0.7 % (0-2); EOSINOPHILS % (AUTO) 1.3 % (0-6); HEMATOCRIT 39.6 % (37.9-51.0); HEMOGLOBIN 13.7 g/dL (13.5-17.0); LYMPHOCYTES % (AUTO) 18.9 % (13-45); MEAN CORPUSCULAR HEMOGLOBIN 32.4 pg (27.0-33.4); MEAN CORPUSCULAR HGB CONC 34.6 g/dL (32.0-36.0); MEAN CORPUSCULAR VOLUME 94 fl (80-97); MONOCYTES % (AUTO) 8.9 % (3-13); PLATELET COUNT 282 10^3/uL (150-450); RED BLOOD COUNT 4.23 10^6/uL (4.35-5.55); RED CELL DISTRIBUTION WIDTH 13.8 % (11.5-14.0); SEGMENTED NEUTROPHILS % (AUTO) 70.2 % (42-78); TOTAL CELLS COUNTED % (AUTO) 100 %
[2019-03-05 22:11] LABS: ALBUMIN 4.1 g/dL (3.5-5.0); ALKALINE PHOSPHATASE 55 U/L (38-126); ANION GAP 11 (5-19); ASPARTATE AMINO TRANSFERASE 20 U/L (17-59); BILIRUBIN,DIRECT 0.3 mg/dL (0.0-0.4); BILIRUBIN,TOTAL 0.5 mg/dL (0.2-1.3); BLOOD UREA NITROGEN 14 mg/dL (7-20); CALCIUM 9.7 mg/dL (8.4-10.2); CARBON DIOXIDE 25 mmol/L (22-30); CHLORIDE 107 mmol/L (98-107); GLUCOSE 120 mg/dL (75-110); TOTAL PROTEIN 7.7 g/dL (6.3-8.2)
--- NOTE | 2019-03-06 01:59 | ER Document Report ---
ED General - General Chief Complaint: Rectal Bleeding Stated Complaint: RECTAL BLEEDING Time Seen by Provider: 03/05/19 20:29 Primary Care Provider: JOVITA KEEN PA [Primary Care Provider] - Follow up as needed Notes: Patient is a 54-year-old male that comes emergency department for chief complaint of bleeding from his colostomy bag. He states that there was blood in the colostomy bag earlier when he emptied it. He denies large amount of blood. He states this is been there for several days now. He denies dizziness, vomiting, abdominal pain, chest pain, or any other complaints. He does report he has a history of colorectal cancer and subsequently had the ostomy performed. He denies any other complaints. He states he is tired and he just wants to sleep. TRAVEL OUTSIDE OF THE [place] IN LAST 30 DAYS: No - Related Data Allergies/Adverse Reactions: Penicillins Allergy (Verified 03/05/19 05:28) Home Medications: Levothyroxine. Diazepam. Gabapentin. oxymorphone ER. Oxycodone Past Medical History - General Information source: Patient - Social History Smoking Status: Current Every Day Smoker Chew tobacco use (# tins/day): No Frequency of alcohol use: None Drug Abuse: None Lives with: Alone Family History: Reviewed & Not Pertinent Patient has suicidal ideation: No Patient has homicidal ideation: No Renal/ Medical History: Denies: Hx Peritoneal Dialysis Malignancy Medical History: Reports Hx Colorectal Cancer Musculoskeletal Medical History: Reports Hx Arthritis Psychiatric Medical History: Reports: Hx Depression - anxiety Past Surgical History: Reports: Hx Bowel Surgery - ostomy placement - Immunizations Immunizations up to date: Yes Review of Systems - Review of Systems Constitutional: No symptoms reported EENT: No symptoms reported Cardiovascular: No symptoms reported Respiratory: No symptoms reported Gastrointestinal: See HPI Genitourinary: No symptoms reported Male Genitourinary: No symptoms reported Musculoskeletal: No symptoms reported Skin: No symptoms reported Hematologic/Lymphatic: No symptoms reported Neurological/Psychological: No symptoms reported Physical Exam - Vital signs Vitals: Temp Pulse Resp BP Pulse Ox 98.1 F 90 20 123/79 99 03/05/19 19:38 03/05/19 19:38 03/05/19 19:38 03/05/19 19:38 03/05/19 19:38 - Notes Notes: GENERAL: Sleeping but easily aroused. No distress. HEAD: Normocephalic, atraumatic. EYES: Pupils equal, round, and reactive to light. Extraocular movements intact. ENT: Oral mucosa moist, tongue midline. Oropharynx unremarkable. Airway patent. LUNGS: Clear to auscultation bilaterally, no wheezes, rales, or rhonchi. No respiratory distress. HEART: Regular rate and rhythm. No murmur ABDOMEN: Soft, non-tender. Non-distended. The colostomy bag is currently empty. No guarding. No rigidity. EXTREMITIES: Moves all 4 extremities spontaneously. No edema, normal radial and dorsalis pedis pulses bilaterally. No cyanosis. BACK: no cervical, thoracic, lumbar midline tenderness. No saddle anesthesia, normal distal neurovascular exam. Moves all extremities in full range of motion. NEUROLOGICAL: Alert and oriented x3. Normal speech. Cranial nerves II through XII grossly intact. PSYCH: Patient makes poor contact, irritable, answers questions begrudgingly. SKIN: Warm, dry, normal turgor. No rashes or lesions noted. Course - Re-evaluation Re-evalutation: Patient's hemoglobin is actually improved from yesterday. Vital signs unremarkable. Colostomy bag is noted to be completely empty, patient states he "just emptied it". Patient has a soft nontender abdomen. On my exam he has no complaints. He states he just wants to be left alone to sleep. I asked him if I can help in any way and if he had any questions in addition to what I covered with his work-up so far, he states "no" he just wants to be "left alone to sleep". Patient will be discharged with return precautions. After patient was discharged I was told by nursing staff that patient was smoking inside of the facility and in the bathroom and had to be asked to leave by security. Patient refused to leave and [employer] had to be called, after this patient gathered his belongings and left without any difficulty. - Vital Signs Vital signs: Temp Pulse Resp BP Pulse Ox 98.1 F 90 20 123/79 99 03/05/19 19:38 03/05/19 19:38 03/05/19 19:38 03/05/19 19:38 03/05/19 19:38 - Laboratory Result Diagrams: 03/05/19 21:40 03/05/19 21:40 Laboratory results interpreted by me: 03/05/19 03/05/19 21:40 21:40 RBC 4.23 L Glucose 120 H Discharge - Discharge Clinical Impression: Bleeding from colostomy Condition: Stable Disposition: HOME, SELF-CARE Additional Instructions: Your exam including vital signs, laboratory work-up, and physical exam are reassuring. Your hemoglobin is actually improved, there does not appear to be any significant bleeding. Your potassium is also normal now as well. Follow-up with primary care for additional evaluation and management. Return for any concerning symptoms including severe abdominal pain, passing out, return for heavy bleeding, fever, vomiting or any other concerning symptoms. Referrals: JOVITA KEEN PA [Primary Care Provider] - Follow up as needed
== END 2019-03-06 03:34 | disposition home or self-care (01) ==
LOC: ER 18:59
DX: K94.01 Colostomy hemorrhage (principal); Y83.3 Surgical operation with formation of external stoma as the cause of abnormal reaction of the patient, or of later complication, without mention of misadventure at the time of the procedure; F17.200 Nicotine dependence, unspecified, uncomplicated; Z85.048 Personal history of other malignant neoplasm of rectum, rectosigmoid junction, and anus; Z79.899 Other long term (current) drug therapy; Z79.891 Long term (current) use of opiate analgesic
CPT/HCPCS: 36415; 80053; 99283

== ENCOUNTER 2019-04-01 00:09 | Emergency (ER) | payer MEDICAID ==
[2019-04-01] MEDS ORDERED: ACETAMINOPHEN 325 MG TABLET PO ONE (01:01)
[2019-04-01 01:12] LABS: ABSOLUTE BASOPHILS # (AUTO) 0.1 10^3/uL (0.0-0.2); ABSOLUTE EOSINOPHILS # (AUTO) 0.1 10^3/uL (0.0-0.6); ABSOLUTE LYMPHOCYTES (AUTO) 1.5 10^3/uL (0.5-4.7); ABSOLUTE MONOCYTES (AUTO) 0.8 10^3/uL (0.1-1.4); ABSOLUTE NEUT (AUTO) 5.6 10^3/uL (1.7-8.2); BASOPHILS % (AUTO) 0.7 % (0-2); EOSINOPHILS % (AUTO) 1.3 % (0-6); HEMATOCRIT 40.5 % (37.9-51.0); HEMOGLOBIN 14.5 g/dL (13.5-17.0); LYMPHOCYTES % (AUTO) 18.8 % (13-45); MEAN CORPUSCULAR HEMOGLOBIN 33.8 pg (27.0-33.4); MEAN CORPUSCULAR HGB CONC 35.7 g/dL (32.0-36.0); MEAN CORPUSCULAR VOLUME 95 fl (80-97); MONOCYTES % (AUTO) 9.8 % (3-13); PLATELET COUNT 256 10^3/uL (150-450); RED BLOOD COUNT 4.28 10^6/uL (4.35-5.55); RED CELL DISTRIBUTION WIDTH 14.2 % (11.5-14.0); SEGMENTED NEUTROPHILS % (AUTO) 69.4 % (42-78); TOTAL CELLS COUNTED % (AUTO) 100 %; WHITE BLOOD COUNT 8.1 10^3/uL (4.0-10.5)
[2019-04-01 01:23] LABS: ALBUMIN 4.4 g/dL (3.5-5.0); ALKALINE PHOSPHATASE 61 U/L (38-126); ANION GAP 7 (5-19); ASPARTATE AMINO TRANSFERASE 22 U/L (17-59); BILIRUBIN,DIRECT 0.1 mg/dL (0.0-0.4); BILIRUBIN,TOTAL 0.5 mg/dL (0.2-1.3); BLOOD UREA NITROGEN 17 mg/dL (7-20); CALCIUM 9.7 mg/dL (8.4-10.2); CARBON DIOXIDE 26 mmol/L (22-30); CHLORIDE 110 mmol/L (98-107); GLUCOSE 105 mg/dL (75-110); POTASSIUM 4.3 mmol/L (3.6-5.0); TOTAL PROTEIN 7.6 g/dL (6.3-8.2)
[2019-04-01 08:01] LABS: APPEARANCE,URINE CLEAR; BILIRUBIN,URINE NEGATIVE (NEGATIVE); COLOR,URINE YELLOW; GLUCOSE, URINE NEGATIVE (NEGATIVE); KETONES,URINE NEGATIVE (NEGATIVE); LEUKOCYTE ESTERASE,URINE NEGATIVE (NEGATIVE); NITRITE,URINE NEGATIVE (NEGATIVE); PROTEIN,URINE NEGATIVE (NEGATIVE); URINE SPECIFIC GRAVITY 1.012; UROBILINOGEN,URINE NEGATIVE mg/dL (<2.0)
[2019-04-01] MEDS ORDERED: CLINDAMYCIN HCL 150 MG CAPSULE PO ONE (08:02)
[2019-04-01 08:30] VITALS: BP 101/47
--- NOTE | 2019-04-01 14:23 | ER Document Report ---
Entered by SIVAN RYAN SCRIBE 04/01/19 0802 Acting as scribe for:EDGARD MCDERMOTT MD ED General - General Chief Complaint: Abdominal Pain Stated Complaint: RECTUM PAIN/LEG PAIN/FOOT PAIN Time Seen by Provider: 04/01/19 07:43 Primary Care Provider: JOVITA KEEN PA [Primary Care Provider] - Follow up as needed Information source: Patient, [facility] Records Notes: This 54 year old male patient presents to the emergency department today with complaints of generalized chronic pain as well as dental pain. Patient requesting antibiotics for his "decaying teeth" which he reports began after starting chemotheraphy for his rectal cancer. Patient initially unwilling to answer questions, states "isn't it all written down?" when asked what brought him here today. Patient eventually is cooperative. TRAVEL OUTSIDE OF THE [place] IN LAST 30 DAYS: No - Related Data Allergies/Adverse Reactions: Penicillins Allergy (Verified 03/05/19 05:28) Past Medical History - General Information source: Patient - Social History Smoking Status: Current Every Day Smoker Cigarette use (# per day): Yes Frequency of alcohol use: None Drug Abuse: None Lives with: Family Family History: Reviewed & Not Pertinent Patient has suicidal ideation: No Patient has homicidal ideation: No Malignancy Medical History: Reports Hx Colorectal Cancer Musculoskeletal Medical History: Reports Hx Arthritis Psychiatric Medical History: Reports: Hx Anxiety, Hx Depression Past Surgical History: Reports: Hx Bowel Surgery - ostomy placement - Immunizations Immunizations up to date: Yes Review of Systems - Review of Systems Constitutional: See HPI, Other - Chronic pain EENT: See HPI, Dental problem Cardiovascular: No symptoms reported Respiratory: No symptoms reported Gastrointestinal: No symptoms reported Genitourinary: No symptoms reported Male Genitourinary: No symptoms reported Musculoskeletal: No symptoms reported Skin: No symptoms reported Hematologic/Lymphatic: No symptoms reported Neurological/Psychological: No symptoms reported -: Yes All other systems reviewed and negative Physical Exam - Vital signs Vitals: Temp Pulse Resp BP Pulse Ox 97.5 F 90 16 124/74 100 04/01/19 00:28 04/01/19 00:28 04/01/19 00:28 04/01/19 00:28 04/01/19 00:28 - Notes Notes: Physical Exam: General: Alert, appears chronically ill, sleeping comfortably initially requiring a firm shaking of the legs to wake up. HEENT: Normocephalic. Atraumatic. PERRL. Extraocular movements intact. Oropharynx clear. Incredibly poor dentition throughout. Neck: Supple. Non-tender. Respiratory: No respiratory distress. Clear and equal breath sounds bilaterally. Cardiovascular: Regular rate and rhythm. Abdominal: Colostomy. No distension. Normal Bowel Sounds. Back: No gross abnormalities. Extremities: Moves all four extremities. Upper extremities: Normal inspection. Normal ROM. Lower extremities: Complains of excruciating pain with only light palpation of lower extremities Neurological: Normal cognition. AAOx4. Normal speech. Psychological: Normal affect. Normal Mood. Skin: Warm. Dry. Normal color. Course - Vital Signs Vital signs: Temp Pulse Resp BP Pulse Ox 97.6 F 84 16 101/47 L 96 04/01/19 08:23 04/01/19 08:23 04/01/19 08:23 04/01/19 08:23 04/01/19 08:23 - Laboratory Result Diagrams: 04/01/19 01:00 04/01/19 01:00 Laboratory results interpreted by me: 04/01/19 04/01/19 01:00 01:00 RBC 4.28 L MCH 33.8 H RDW 14.2 H Chloride 110 H Discharge - Discharge Clinical Impression: Dental decay, Chronic pain syndrome Condition: Stable Disposition: HOME, SELF-CARE Additional Instructions: Toothache: Your pain is due to dental decay. You will be referred to a dentist. Severe swelling or drainage around a tooth usually means a deep dental abscess. This also requires evaluation and treatment by the dentist, but antibiotics may be prescribed while awaiting dental treatment. You should be rechecked immediately if you develop major swelling of the face, increasing pain, a lump in the jaw or gums, headache, or fever. Colostomy Bleeding: Your hemoglobin level today was much higher than it was earlier this month so you do not have any significant bleeding going on. Chronic Pain Control: We do not manage chronic pain in the Emergency Department. We will try to appropriately help you through an acute flare of your chronic painful condition, but for on-going chronic pain that does not improve, you will need to see your private doctor or dial painter. We do not provide repeated medication management of chronic painful conditions. If you wish, we can provide the name of local pain management physicians. Follow-up with your primary care provider for your chronic pain management and bleeding into the colostomy. Take the clindamycin as prescribed to calm down the inflammation involved in your decaying teeth. Follow-up with a local dentist to discuss management of your severe dental decay. RETURN TO THE EMERGENCY ROOM IF ANY NEW OR WORSENING SYMPTOMS. Prescriptions: Clindamycin HCl 300 mg PO QID #28 capsule Referrals: JOVITA KEEN PA [Primary Care Provider] - Follow up as needed Scribe Attestation: 04/01/19 08:04 I personally performed the services described in the documentation, reviewed and edited the documentation which was dictated to the scribe in my presence, and it accurately records my words and actions. I personally performed the services described in the documentation, reviewed and edited the documentation which was dictated to the scribe in my presence, and it accurately records my words and actions.
== END 2019-04-01 08:30 | disposition home or self-care (01) ==
LOC: ER 00:09
DX: K02.9 Dental caries, unspecified (principal); G89.4 Chronic pain syndrome; M79.604 Pain in right leg; M79.605 Pain in left leg; C20 Malignant neoplasm of rectum; Z79.899 Other long term (current) drug therapy; Z88.0 Allergy status to penicillin; F17.210 Nicotine dependence, cigarettes, uncomplicated
CPT/HCPCS: 99284; 36415; 83690; 85025; 80053; 81001; J3490 ×2

== ENCOUNTER 2019-04-17 22:10 | Emergency (ER) | payer MEDICAID ==
--- NOTE | 2019-04-17 22:49 | ER Document Report ---
ED General - General Chief Complaint: General Weakness Stated Complaint: GENERAL WEAKNESS Time Seen by Provider: 04/17/19 22:26 Primary Care Provider: TYRELL BUSTILLOS MD [Primary Care Provider] - Follow up as needed TRAVEL OUTSIDE OF THE [place] IN LAST 30 DAYS: No - HPI Notes: Mr. Garcia is a 54-year-old male with a chief complaint of generalized weakness, chronic pain of lower back and both legs and persistent tingling in lower legs with difficulty with ambulation. This gentleman is well-known to me from earlier emergency department encounters and is a frequent visitor to this department. He has a history of chronic pain syndrome and is usually very demanding and verbally abusive and I suspect he has personality disorder. We have repeatedly informed him that we would not administer narcotic medications for chronic pain conditions. Patient is signed himself out AMA from the department on several occasions previously. Patient also has a past history of colorectal cancer and has a colostomy. He is chronically nonambulatory and uses wheelchair at home. He is currently living with a roommate. He complains he is increasingly having difficulty caring for himself but he apparently does not have any desire to go to an extended care facility. Patient complains that he feels he has not been treated well by pain management clinic. He says he goes to [facility] pain management and they did a bilateral epidural injection for him for his sciatica pain related to lumbar radiculopathy back in March. He feels that his pain in his tingling in lower extremities is actually worse since he had the injection. Patient also has very poor dentition and was seen here within the last month for periodontal infection by another provider. He was referred to a dentist at that time and given a prescription for clindamycin. He says he is taken up the medication but has not been able to see a dentist and reports this is an ongoing problem. Patient says that he is not eating and drinking well. We note that he has had a past history of chronic hypokalemia and hypomagnesemia. He is apparently not taking any supplementations for either these currently. He says he vomited several days ago but has not had any vomiting today. - Related Data Allergies/Adverse Reactions: Penicillins Allergy (Verified 03/05/19 05:28) Home Medications: gabapentin, diazepam Past Medical History - General Information source: Patient - Social History Smoking Status: Current Every Day Smoker Frequency of alcohol use: None Drug Abuse: None Family History: Reviewed & Not Pertinent Patient has suicidal ideation: No Patient has homicidal ideation: No Renal/ Medical History: Denies: Hx Peritoneal Dialysis Malignancy Medical History: Reports Hx Colorectal Cancer Musculoskeletal Medical History: Reports Hx Arthritis, Reports Hx Sciatica Psychiatric Medical History: Reports: Hx Anxiety, Hx Depression Past Surgical History: Reports: Hx Bowel Surgery - ostomy placement - Immunizations Immunizations up to date: Yes Review of Systems - Review of Systems Notes: Constitutional: Negative for fever. HENT: Negative for sore throat. Eyes: Negative for visual changes. Cardiovascular: Negative for chest pain. Respiratory: Negative for shortness of breath. Gastrointestinal: As per HPI. Genitourinary: Negative for dysuria. Musculoskeletal: As per HPI. Skin: Negative for rash. Neurological: As per HPI. 10 point ROS negative except as marked above and in HPI. Physical Exam - Vital signs Vitals: Temp Pulse Resp BP Pulse Ox 97.7 F 80 18 132/76 H 99 04/17/19 22:13 04/17/19 22:13 04/17/19 22:13 04/17/19 22:13 04/17/19 22:13 - Notes Notes: GENERAL: Disheveled chronically ill-appearing middle-age male with extremely poor personal hygiene appearing in no acute distress. SKIN: Good turgor no rashes. HEAD: Normocephalic atraumatic. EYES: PERRLA. EOMI. Conjunctivae and sclerae clear. EARS: CANALS AND TMS CLEAR. NOSE: CLEAR. MOUTH: Moist mucosa. Extremely poor dentition with multiple advanced dental caries. No stridor or edema. No drooling. NECK: Supple. No masses or thyromegaly. No adenopathy. Carotids 2+ without bruits. No JVD. BACK: Diffuse tenderness lumbar area bilaterally. CHEST: Respirations unlabored. Breath sounds clear and symmetrical. HEART: Regular rhythm. No murmur gallop or rub. ABDOMEN: Soft nontender without masses, organomegaly or rebound. Bowel sounds normally active. No bruits. Colostomy present left mid quadrant. GENITALIA: Deferred. EXTREMITIES: No edema. No calf tenderness. Cap refill less than 1.5 seconds. Dorsalis pedis and posterior tibial pulses 3+ and symmetrical. NEUROLOGICAL: GCS 15. Alert and oriented x3. Fluent speech. Cranial nerves II through XII intact. Sensation in all 4 extremities is grossly intact. Patient complains of severe pain with any movement of either leg and motor testing is difficult due to lack of cooperation. PSYCHIATRIC: Patient is mildly belligerent. Course - Re-evaluation Re-evalutation: 04/18/19 01:42 Blood chemistries remarkable for low serum protein level and mild elevation of transaminase values. Magnesium level was normal. His alcohol was less than 10. This is consistent with multiple baseline studies. His hemoglobin is about 11.9 g and his white count is normal. The patient never collected a urine specimen for us. I informed him that we would not be administering narcotic medications for chronic pain here tonight. He ultimately decided that he would rather follow-up with his outpatient physician and noted that he had a friend here who was going to take him home. - Vital Signs Vital signs: Temp Pulse Resp BP Pulse Ox 97.7 F 80 18 132/76 H 99 04/17/19 22:13 04/17/19 22:13 04/17/19 22:13 04/17/19 22:13 04/17/19 22:13 - Laboratory Result Diagrams: 04/17/19 22:50 04/17/19 22:50 Laboratory results interpreted by me: 04/17/19 04/17/19 22:50 22:50 RBC 3.47 L Hgb 11.7 L Hct 32.5 L MCH 33.8 H MCHC 36.2 H Lymph % (Auto) 9.2 L Seg Neutrophils % 81.0 H Anion Gap 4 L ALT 62 H Total Protein 5.8 L Albumin 3.1 L Discharge - Discharge Clinical Impression: Sciatica associated with disorder of lumbar spine, Chronic pain syndrome Condition: Stable Disposition: HOME, SELF-CARE Referrals: TYRELL BUSTILLOS MD [Primary Care Provider] - Follow up as needed
[2019-04-17 23:12] LABS: ABSOLUTE EOSINOPHILS # (AUTO) 0.1 10^3/uL (0.0-0.6); ABSOLUTE LYMPHOCYTES (AUTO) 0.9 10^3/uL (0.5-4.7); ABSOLUTE MONOCYTES (AUTO) 0.8 10^3/uL (0.1-1.4); ABSOLUTE NEUT (AUTO) 7.9 10^3/uL (1.7-8.2); BASOPHILS % (AUTO) 0.5 % (0-2); EOSINOPHILS % (AUTO) 1.2 % (0-6); HEMATOCRIT 32.5 % (37.9-51.0); HEMOGLOBIN 11.7 g/dL (13.5-17.0); LYMPHOCYTES % (AUTO) 9.2 % (13-45); MEAN CORPUSCULAR HEMOGLOBIN 33.8 pg (27.0-33.4); MEAN CORPUSCULAR HGB CONC 36.2 g/dL (32.0-36.0); MEAN CORPUSCULAR VOLUME 94 fl (80-97); MONOCYTES % (AUTO) 8.1 % (3-13); PLATELET COUNT 249 10^3/uL (150-450); RED BLOOD COUNT 3.47 10^6/uL (4.35-5.55); RED CELL DISTRIBUTION WIDTH 13.7 % (11.5-14.0); TOTAL CELLS COUNTED % (AUTO) 100 %; WHITE BLOOD COUNT 9.7 10^3/uL (4.0-10.5)
[2019-04-17 23:42] LABS: ALBUMIN 3.1 g/dL (3.5-5.0); ALKALINE PHOSPHATASE 58 U/L (38-126); ASPARTATE AMINO TRANSFERASE 35 U/L (17-59); BILIRUBIN,TOTAL 0.4 mg/dL (0.2-1.3); BLOOD UREA NITROGEN 20 mg/dL (7-20); CALCIUM 8.4 mg/dL (8.4-10.2); CARBON DIOXIDE 29 mmol/L (22-30); CHLORIDE 106 mmol/L (98-107); GLUCOSE 96 mg/dL (75-110); POTASSIUM 3.8 mmol/L (3.6-5.0); TOTAL PROTEIN 5.8 g/dL (6.3-8.2)
[2019-04-17 23:45] LABS: ALCOHOL < 10 mg/dL (NONE DETECTED)
[2019-04-17 23:54] LABS: ANION GAP 4 (5-19)
[2019-04-18] MEDS ORDERED: IBUPROFEN 600 MG TABLET PO ONE (01:51)
[2019-04-18 02:10] VITALS: BP 126/78
== END 2019-04-18 02:12 | disposition home or self-care (01) ==
LOC: ER 22:10
DX: M54.40 Lumbago with sciatica, unspecified side (principal); G89.4 Chronic pain syndrome; R53.1 Weakness; M79.604 Pain in right leg; M79.605 Pain in left leg; R20.0 Anesthesia of skin; Z88.0 Allergy status to penicillin; Z79.899 Other long term (current) drug therapy
CPT/HCPCS: 36415; 80307; 83735; 85025; 80053; J3490; 99283

== ENCOUNTER 2019-05-13 12:10 | Emergency (ER) | payer MEDICAID ==
[2019-05-13] MEDS ORDERED: FENTANYL CITRATE INJ/PF 100 MCG/2 ML AMPUL IV ONE ×2 (13:22→17:46)
[2019-05-13] MEDS ORDERED: RINGERS SOLUTION,LACTATED 1,000 ML IV ONE (13:22)
--- NOTE | 2019-05-13 13:25 | ER Document Report ---
ED General - General Chief Complaint: Pain All Over Stated Complaint: ABDOMINAL PAIN/RECTAL BLEEDING/PAINEFUL URINATION Primary Care Provider: TYRELL BUSTILLOS MD [Primary Care Provider] - Follow up as needed Mode of Arrival: Medic Information source: Patient, [facility] Records Notes: 54-year-old male with history of colorectal cancer requiring colectomy, colostomy, chronic back pain presents with diffuse myalgias, abdominal pain and dysuria that has been ongoing for 3 days. Patient denies any fever, chills, nausea, vomiting but does report a decrease in appetite. TRAVEL OUTSIDE OF THE [place] IN LAST 30 DAYS: No - HPI Onset: Other Onset/Duration: Gradual, Persistent Quality of pain: Achy Severity: Mild Associated symptoms: Chills. denies: Nonproductive cough, Productive cough, Fever, Nausea, Vomiting, Shortness of breath Exacerbated by: Denies Relieved by: Denies Similar symptoms previously: Yes Recently seen / treated by doctor: No - Related Data Allergies/Adverse Reactions: Penicillins Allergy (Verified 03/05/19 05:28) Past Medical History - General Information source: Patient - Social History Smoking Status: Current Every Day Smoker Chew tobacco use (# tins/day): No Frequency of alcohol use: None Drug Abuse: None Lives with: Alone Family History: Reviewed & Not Pertinent Patient has suicidal ideation: No Patient has homicidal ideation: No Renal/ Medical History: Denies: Hx Peritoneal Dialysis Malignancy Medical History: Reports Hx Colorectal Cancer Musculoskeletal Medical History: Reports Hx Arthritis Psychiatric Medical History: Reports: Hx Anxiety, Hx Depression Past Surgical History: Reports: Hx Bowel Surgery - ostomy placement - Immunizations Immunizations up to date: Yes Review of Systems - Review of Systems Constitutional: Malaise. denies: Fever, Recent illness EENT: denies: Blurred vision Cardiovascular: denies: Chest pain, Palpitations, Dyspnea Respiratory: denies: Cough, Short of breath Gastrointestinal: Abdominal pain, Poor appetite, Poor fluid intake. denies: Abdomen distended, Nausea, Constipation, Black stools, Rectal bleeding Genitourinary: Dysuria. denies: Flank pain Musculoskeletal: Muscle pain Skin: denies: Rash Hematologic/Lymphatic: No symptoms reported Neurological/Psychological: denies: Headaches -: Yes All other systems reviewed and negative Physical Exam - Notes Notes: PHYSICAL EXAMINATION: GENERAL: Disheveled, unkept, dirt under fingernails HEAD: Atraumatic, normocephalic. EYES: Pupils equal round and reactive to light, extraocular movements intact, sclera anicteric, conjunctiva are normal. ENT: Nares patent, oropharynx clear without exudates. Moist mucous membranes. NECK: Normal range of motion, supple without lymphadenopathy LUNGS: Breath sounds clear to auscultation bilaterally and equal. No wheezes rales or rhonchi. HEART: Regular rate and rhythm without murmurs ABDOMEN: Soft, nontender, nondistended abdomen. Colostomy site clean dry and intact, no guarding, no rebound. No masses appreciated. Musculoskeletal: Normal range of motion, no pitting or edema. No cyanosis. NEUROLOGICAL: Cranial nerves grossly intact. Normal speech, normal gait. Normal sensory, motor exams PSYCH: Normal mood, normal affect. SKIN: Warm, Dry, normal turgor, no rashes or lesions noted. Course - Re-evaluation Re-evalutation: Laboratory 05/13/19 05/13/19 05/13/19 12:50 12:50 13:45 WBC 6.6 RBC 3.12 L Hgb 10.5 L Hct 28.6 L MCV 92 MCH 33.5 H MCHC 36.5 H RDW 13.0 Plt Count 253 Lymph % (Auto) 13.1 [place] % (Auto) 6.7 Eos % (Auto) 1.5 Baso % (Auto) 0.4 Absolute Neuts (auto) 5.2 Absolute Lymphs (auto) 0.9 Absolute Monos (auto) 0.4 Absolute Eos (auto) 0.1 Absolute Basos (auto) 0.0 Seg Neutrophils % 78.3 H Sodium 139.5 Potassium 3.3 L Chloride 105 Carbon Dioxide 26 Anion Gap 9 BUN 12 Creatinine 0.53 Est GFR ( Amer) > 60 Est GFR (MDRD) Non-Af > 60 Glucose 104 Calcium 8.7 Total Bilirubin 0.3 Direct Bilirubin 0.1 Neonat Total Bilirubin Not Reportable Neonat Direct Bilirubin Not Reportable Neonat Indirect Bili Not Reportable AST 22 ALT 26 Alkaline Phosphatase 61 Total Protein 6.7 Albumin 3.4 L Lipase 84.6 Urine Color Urine Appearance Urine pH Ur Specific [place] Urine Protein Urine Glucose (UA) Urine Ketones Urine Blood Urine Nitrite Urine Bilirubin Urine Urobilinogen Ur Leukocyte Esterase Urine WBC (Auto) Urine RBC (Auto) Squamous Epi Cells Auto Urine Mucus (Auto) Urine Ascorbic Acid Influenza A (Rapid) NEGATIVE Influenza B (Rapid) NEGATIVE 05/13/19 13:45 WBC RBC Hgb Hct MCV MCH MCHC RDW Plt Count Lymph % (Auto) [place] % (Auto) Eos % (Auto) Baso % (Auto) Absolute Neuts (auto) Absolute Lymphs (auto) Absolute Monos (auto) Absolute Eos (auto) Absolute Basos (auto) Seg Neutrophils % Sodium Potassium Chloride Carbon Dioxide Anion Gap BUN Creatinine Est GFR ( Amer) Est GFR (MDRD) Non-Af Glucose Calcium Total Bilirubin Direct Bilirubin Neonat Total Bilirubin Neonat Direct Bilirubin Neonat Indirect Bili AST ALT Alkaline Phosphatase Total Protein Albumin Lipase Urine Color YELLOW Urine Appearance CLEAR Urine pH 7.0 Ur Specific [place] 1.003 Urine Protein NEGATIVE Urine Glucose (UA) NEGATIVE Urine Ketones NEGATIVE Urine Blood NEGATIVE Urine Nitrite NEGATIVE Urine Bilirubin NEGATIVE Urine Urobilinogen 2.0 H Ur Leukocyte Esterase NEGATIVE Urine WBC (Auto) 0 Urine RBC (Auto) 0 Squamous Epi Cells Auto <1 Urine Mucus (Auto) RARE Urine Ascorbic Acid NEGATIVE Influenza A (Rapid) Influenza B (Rapid) Abdomen/Pelvis CT 05/13/19 00:00 IMPRESSION: Prominent loops of small bowel with apparent transition point in the right lower quadrant. This may represent obstruction or ileus. 05/13/19 17:53 Dr. Mujica consulted for findings of possible obstruction on CT 05/13/19 18:[address] Mujica who does not feel that patient has an obstruction. 05/13/19 19:31 54-year-old male with a history of colorectal cancer, colectomy and colostomy presents with abdominal pain. Vital signs reviewed. Patient does have a benign abdominal exam. He has had normal output to his ostomy has had flatus and no vomiting. CT of the abdomen pelvis was obtained. Questionable bowel obstruction versus ileus. At this point we feel this is likely ileus. Patient tolerating oral intake. CBC is without leukocytosis or anemia. CMP is without significant electrolyte abnormality. Urinalysis not consistent with infection. Influenza negative. Patient was evaluated and treated as appropriate for the patient's presenting symptoms and complaint, with consideration of any critical or life threatening conditions that may be associated with their obtained history and exam as noted above. All results were discussed with patient and... Patient provided the opportunity to ask questions, and express concerns. Patient was educated on treatments based on their presumed diagnosis as noted above. At this time we will discharge the patient with return precautions and follow-up recommendations. Verbal discharge instructions given a the bedside. Medication warnings reviewed. Patient is in agreement with this plan and has verbalized understanding of return precautions. After careful consideration I feel that that patient can be safely discharged from the emergency department, they were advised to followup with a primary care physician in 2-3 days. Dictation on this chart was performed using voice recognition software and may result in unintended grammatical, spelling, syntax or errors. - Laboratory Result Diagrams: 05/13/19 12:50 05/13/19 12:50 Laboratory results interpreted by me: 05/13/19 05/13/19 05/13/19 12:50 12:50 13:45 RBC 3.12 L Hgb 10.5 L Hct 28.6 L MCH 33.5 H MCHC 36.5 H Seg Neutrophils % 78.3 H Potassium 3.3 L Albumin 3.4 L Urine Urobilinogen 2.0 H - Diagnostic Test Radiology reviewed: Image reviewed, Reports reviewed Discharge - Discharge Clinical Impression: Abdominal pain Qualifiers: Abdominal location: left lower quadrant Qualified Code(s): R10.32 - Left lower quadrant pain Condition: Good Disposition: HOME, SELF-CARE Instructions: Abdominal Pain ([facility]) Additional Instructions: You have been seen in the Emergency Department (ED) for abdominal pain. Your evaluation did not identify a clear cause of your symptoms but was generally reassuring. Please follow up with your doctor as soon as possible regarding today's emergent visit and the symptoms that are bothering you. Return to the ED if your abdominal pain worsens or fails to improve, you develop bloody vomiting, bloody diarrhea, you are unable to tolerate fluids due to vomiting, fever greater than 101, or other symptoms that concern you. Referrals: TYRELL BUSTILLOS MD [Primary Care Provider] - Follow up as needed
[2019-05-13 13:28] LABS: ABSOLUTE EOSINOPHILS # (AUTO) 0.1 10^3/uL (0.0-0.6); ABSOLUTE LYMPHOCYTES (AUTO) 0.9 10^3/uL (0.5-4.7); ABSOLUTE MONOCYTES (AUTO) 0.4 10^3/uL (0.1-1.4); ABSOLUTE NEUT (AUTO) 5.2 10^3/uL (1.7-8.2); BASOPHILS % (AUTO) 0.4 % (0-2); EOSINOPHILS % (AUTO) 1.5 % (0-6); HEMATOCRIT 28.6 % (37.9-51.0); HEMOGLOBIN 10.5 g/dL (13.5-17.0); LYMPHOCYTES % (AUTO) 13.1 % (13-45); MEAN CORPUSCULAR HEMOGLOBIN 33.5 pg (27.0-33.4); MEAN CORPUSCULAR HGB CONC 36.5 g/dL (32.0-36.0); MEAN CORPUSCULAR VOLUME 92 fl (80-97); MONOCYTES % (AUTO) 6.7 % (3-13); PLATELET COUNT 253 10^3/uL (150-450); RED BLOOD COUNT 3.12 10^6/uL (4.35-5.55); SEGMENTED NEUTROPHILS % (AUTO) 78.3 % (42-78); TOTAL CELLS COUNTED % (AUTO) 100 %; WHITE BLOOD COUNT 6.6 10^3/uL (4.0-10.5)
[2019-05-13 13:35] LABS: ALBUMIN 3.4 g/dL (3.5-5.0); ALKALINE PHOSPHATASE 61 U/L (38-126); ANION GAP 9 (5-19); ASPARTATE AMINO TRANSFERASE 22 U/L (17-59); BILIRUBIN,DIRECT 0.1 mg/dL (0.0-0.4); BILIRUBIN,TOTAL 0.3 mg/dL (0.2-1.3); BLOOD UREA NITROGEN 12 mg/dL (7-20); CALCIUM 8.7 mg/dL (8.4-10.2); CARBON DIOXIDE 26 mmol/L (22-30); CHLORIDE 105 mmol/L (98-107); GLUCOSE 104 mg/dL (75-110); POTASSIUM 3.3 mmol/L (3.6-5.0); TOTAL PROTEIN 6.7 g/dL (6.3-8.2)
[2019-05-13 14:19] LABS: A TYPE INFLUENZA AG NEGATIVE (NEGATIVE); B INFLUENZA AG NEGATIVE (NEGATIVE)
[2019-05-13 14:21] LABS: APPEARANCE,URINE CLEAR; BILIRUBIN,URINE NEGATIVE (NEGATIVE); COLOR,URINE YELLOW; GLUCOSE, URINE NEGATIVE (NEGATIVE); KETONES,URINE NEGATIVE (NEGATIVE); LEUKOCYTE ESTERASE,URINE NEGATIVE (NEGATIVE); NITRITE,URINE NEGATIVE (NEGATIVE); PROTEIN,URINE NEGATIVE (NEGATIVE); URINE SPECIFIC GRAVITY 1.003
[2019-05-13] MEDS ORDERED: POTASSIUM CHLORIDE 20 MEQ PACKET PO ONE (15:57)
--- NOTE | 2019-05-13 16:52 | RADIOLOGY REPORT (SQ) ---
EXAM DESCRIPTION: CT ABD/PELVIS WITH IV ORAL COMPLETED DATE/TIME: 05/13/2019 4:29 pm REASON FOR STUDY: Abdominal pain, history of colon cancer. COMPARISON: 01/18/2018 TECHNIQUE: CT scan of the abdomen and pelvis performed using helical scanning technique with dynamic intravenous contrast injection. No oral contrast. Images reviewed with lung, soft tissue, and bone windows. Reconstructed coronal and sagittal MPR images reviewed. Delayed images for evaluation of the urinary system also acquired. All images stored on PACS. All CT scanners at this facility use dose modulation, iterative reconstruction, and/or weight based d osing when appropriate to reduce radiation dose to as low as reasonably achievable (ALARA). [facility]: Dose Right [facility]: CareDose [facility]: Dose Right [facility]: Teradose 4D [facility]: iSyndica CONTRAST TYPE AND DOSE: contrast/concentration: Isovue 350.00 mg/ml; Total Contrast Delivered: 51.0 ml; Total Saline Delivered: 66.0 ml RENAL FUNCTION: GFR > 60. RADIATION DOSE: CT Rad equipment meets quality standard of care and radiation dose reduction techniq ues were employed. CTDIvol: 5.2 - 6.4 mGy. DLP: 623 mGy-cm.. LIMITATIONS: None. FINDINGS: LOWER CHEST: No significant findings. No nodules or infiltrates. LIVER: Normal size. No masses. No dilated ducts. SPLEEN: Normal size. No focal lesions. PANCREAS: No masses. No significant calcifications. No adjacent inflammation or peripancreatic fluid collections. Pancreatic duct not dilated. GALLBLADDER: No identified stones by CT criteria. No inflammatory changes to suggest cholecystitis. ADRENAL GLANDS: No significant masses or asymmetry. RIGHT KIDNEY AND URETER: No solid masses. No significant calcifications. No hydronephrosis or hyd roureter. LEFT KIDNEY AND URETER: No solid masses. No significant calcifications. No hydronephrosis or hydr oureter. AORTA AND VESSELS: Limited evaluation due to low contrast volume. Aortoiliac calcifications are pres ent. RETROPERITONEUM: No retroperitoneal adenopathy, hemorrhage or masses. BOWEL AND PERITONEAL CAVITY: There are multiple prominent loops small bowel present, measuring up to 4.5 cm in diameter. The bowel is decompressed in the right lower quadrant just before the terminal i leum. A diverting colostomy is present in the left lower quadrant. Limited evaluation of the deep p camryn due to photon starvation. APPENDIX: Not visualized. PELVIS: Limited evaluation due to photon starvation artifact. Postsurgical changes about the rectum. ABDOMINAL WALL: Left lower quadrant diverting colostomy. BONES: No significant or acute findings. OTHER: No other significant finding. IMPRESSION: Prominent loops of small bowel with apparent transition point in the right lower quadran t. This may represent obstruction or ileus. TECHNICAL DOCUMENTATION: JOB ID: [id number] Quality ID # [id number]: Final reports with documentation of one or more dose reduction techniques (e.g., Au tomated exposure control, adjustment of the mA and/or kV according to patient size, use of iterative reconstruction technique) 2010 [employer]- All Rights Reserved Reading location - IP/workstation name: [email or web address]
[2019-05-13] MEDS ORDERED: ONDANSETRON ODT 4 MG TAB (6 TAB/ER DISP) PO PRN (19:08)
[2019-05-13] MEDS ORDERED: HYDROCODONE/ACETAMINOPHEN 5-325 MG (6 TAB/ER DISP) PO PRN (19:08)
--- NOTE | 2019-05-13 19:11 | PDOC CONSULTATION ---
Consultation Consult Date: 05/13/19 Attending physician:: SHAKA FARFAN Provider Consulted: BERTA GOODEN Consult reason:: r/o bowel obstruction History of Present Illness Admission Date/PCP: TYRELL BUSTILLOS MD History of Present Illness: LEONILA LOWE is a 54 year old [id number] male with history of colorectal cancer requiring colectomy, colostomy, chronic back pain presents with diffuse myalgias, abdominal pain and dysuria that has been ongoing for 3 days. Patient denies any fever, chills, nausea, vomiting but does report a decrease in appetite. Patient's dates that his [employer]. 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 In addition to that he has been trying to get a CAT scan to follow-up on his history of rectal cancer stated that his oncologist requested the CAT scan but has been unable to schedule and he comes to the emergency room to obtain that. Upon CT scan there is a questionable dilated small bowel and suggested by the radiologist that there may be a transition point near the right lower quadrant. Her graph therefore surgery was consulted to evaluate the CAT scan. Past Medical History Malignancy Medical History: Reports: Colorectal Cancer Musculoskeltal Medical History: Reports: Arthritis Psychiatric Medical History: Reports: Depression Social History Lives with: Alone Smoking Status: Current Every Day Smoker Electronic Cigarette use?: No Family History Family History: Reviewed & Not Pertinent Parental Family History Reviewed: No Children Family History Reviewed: NA Sibling(s) Family History Reviewed.: NA Medication/Allergy Home Medications: Diazepam [Valium 5 mg Tablet] 5 mg PO QIDP PRN #15 tablet 10/20/17 Diazepam [Valium 5 mg Tablet] 5 mg PO BID PRN #12 tablet 10/28/17 Oxycodone HCl/Acetaminophen [Percocet 5-325 mg Tablet] 1 tab PO BID #10 tab 01/18/18 Oxycodone HCl/Acetaminophen [Percocet 5-325 mg Tablet] 1 - 2 tab PO Q6 #15 tablet 02/03/18 Oxycodone HCl [Oxycontin Ir 5 Mg Tablet] 1 - 2 mg PO Q4H PRN #15 tablet 11/17/18 Calcium Carbonate 500 mg PO BID #20 tablet 02/25/19 Potassium Chloride 20 meq PO BID #8 tab.er.prt 02/25/19 Clindamycin HCl 300 mg PO QID #28 capsule 04/01/19 Clindamycin HCl 300 mg PO TID #30 capsule 04/18/19 Allergies/Adverse Reactions: Penicillins Allergy (Verified 03/05/19 05:28) Review of Systems Constitutional: PRESENT: fatigue, weight loss Ears: ABSENT: as per HPI, hearing changes, other Nose, Mouth, and Throat: PRESENT: mouth pain Breasts: ABSENT: as per HPI, other Cardiovascular: ABSENT: as per HPI, chest pain, dyspnea on exertion, edema, orthropnea, palpitations, other Respiratory: ABSENT: as per HPI, cough, dyspnea, hemoptysis, sputum, other Gastrointestinal: PRESENT: other - Complains of slightly blood-tinged mucus discharge from his rectum. Genitourinary: ABSENT: as per HPI, difficulty urinating, dysuria, hematuria, nocturia, other Musculoskeletal: PRESENT: back pain, muscle weakness Integumentary: ABSENT: as per HPI, diaphoresis, erythema, lesions, pruritus, rash, wounds, other Neurological: ABSENT: as per HPI, abnormal gait, abnormal movements, abnormal speech, confusion, convulsions, dizziness, focal weakness, frequent falls, lack of coordination, memory loss, numbness, paresthesias, restless legs, syncope, tingling, tremor(s), vertigo, weakness, other Psychiatric: ABSENT: as per HPI, anxiety, depression, hallucinations, homidical ideation, suicidal ideation, other Endocrine: ABSENT: as per HPI, cold intolerance, flushing, heat intolerance, menstrual abnormalities, polydipsia, polyphagia, polyuria, other Hematologic/Lymphatic: ABSENT: as per HPI, easy bleeding, easy bruising, lymphadenopathy, other Allergic/Immunologic: ABSENT: as per HPI, seasonal rhinorrhea, other Physical Exam Vital Signs: Intake & Output 05/12/19 05/13/19 05/14/19 06:59 06:59 06:59 Intake Total 1000 Balance 1000 Weight 68 kg General appearance: PRESENT: no acute distress, thin Head exam: PRESENT: atraumatic Eye exam: PRESENT: EOMI Ear exam: PRESENT: normal external ear exam Mouth exam: PRESENT: moist Teeth exam: PRESENT: poor dentation Neck exam: PRESENT: full ROM Respiratory exam: PRESENT: clear to auscultation nimo Cardiovascular exam: PRESENT: RRR Pulses: PRESENT: normal radial pulses, normal femoral pulses Vascular exam: PRESENT: normal capillary refill GI/Abdominal exam: PRESENT: mass, other - Stoma in left lower quadrant f unctional Rectal exam: PRESENT: deferred Extremities exam: PRESENT: full ROM Musculoskeletal exam: PRESENT: full ROM Neurological exam: PRESENT: alert, awake, oriented to person, oriented to place Psychiatric exam: PRESENT: anxious Skin exam: PRESENT: dry Results Laboratory Results: 05/13/19 12:50 05/13/19 12:50 05/13/19 05/13/19 05/13/19 12:50 12:50 13:45 WBC 6.6 RBC 3.12 L Hgb 10.5 L Hct 28.6 L MCV 92 MCH 33.5 H MCHC 36.5 H RDW 13.0 Plt Count 253 Seg Neutrophils % 78.3 H Sodium 139.5 Potassium 3.3 L Chloride 105 Carbon Dioxide 26 Anion Gap 9 BUN 12 Creatinine 0.53 Est GFR ( Amer) > 60 Glucose 104 Calcium 8.7 Total Bilirubin 0.3 AST 22 Alkaline Phosphatase 61 Total Protein 6.7 Albumin 3.4 L Lipase 84.6 Urine Color YELLOW Urine Appearance CLEAR Urine pH 7.0 Ur Specific [place] 1.003 Urine Protein NEGATIVE Urine Glucose (UA) NEGATIVE Urine Ketones NEGATIVE Urine Blood NEGATIVE Urine Nitrite NEGATIVE Ur Leukocyte Esterase NEGATIVE Urine WBC (Auto) 0 Urine RBC (Auto) 0 Impressions: Abdomen/Pelvis CT 05/13/19 00:00 IMPRESSION: Prominent loops of small bowel with apparent transition point in the right lower quadrant. This may represent obstruction or ileus. Assessment & Plan - Plan Summary Plan Summary: Impression 54-year-old male with a history of rectal cancer status post colostomy and low anterior resection. He has been seeing Dr. Bill melton's medical oncologist for follow-up. He is per patient has undergone chemotherapy and radiation in 2017 and 18. Was told that he had no further evidence of residual cancer. Has been suggested by his oncologist that he can obtain a colonoscopy through the stoma as well as through his rectum for routine screening however he has deferred that even though he had an appointment a few months ago to have a schedule. Also it was suggested by his oncologist to get a follow-up CAT scan however that for some reason has been deferred and the patient has not had that scheduled. He comes to the emergency room tonight because of more difficulty taking care for himself he lives alone he has chronic low back pain he was suggested by his social care the fuel cell test engineer to call 911 and come to the emergency room so that he could get evaluated for either home care or intermediate placement. I long discussion with the patient as well as his oncologist Dr. Bill melton who suggested that he reschedule him as an outpatient for a screening colonoscopy. He underwent a CT scan today which does not show an obvious small bowel obstruction there is a air in the colon there is a an abundance of stool in the descending colon and is seen exiting the stoma. Patient does not have complaints of abdominal pain at this time and states that his stoma is functioning. Recommendations #1 no evidence of obvious small bowel obstruction at this time. 2 patient needs follow-up for screening colonoscopy he can be scheduled here or in [place] depending on his choice. No need for surgical intervention at this time.
[2019-05-13 20:20] VITALS: BP 100/68
== END 2019-05-13 20:49 | disposition home or self-care (01) ==
LOC: ER 12:10
DX: R10.32 Left lower quadrant pain (principal); M79.10 Myalgia, unspecified site; R10.9 Unspecified abdominal pain; K62.5 Hemorrhage of anus and rectum; R30.0 Dysuria; R63.0 Anorexia; R53.83 Other fatigue; K08.89 Other specified disorders of teeth and supporting structures; F41.9 Anxiety disorder, unspecified; Z85.038 Personal history of other malignant neoplasm of large intestine; Z90.49 Acquired absence of other specified parts of digestive tract; Z93.3 Colostomy status; F17.200 Nicotine dependence, unspecified, uncomplicated; Z79.899 Other long term (current) drug therapy
CPT/HCPCS: 96376; 99284; 96361; 96374; 36415; 83690; 85025; 80053; 81001; 87804; 74177; J3010; J7120; J3490